=== PATIENT | female | born 1985 | race Caucasian/White ===

== ENCOUNTER 2018-09-28 12:25 | Inpatient (IN) | payer MEDICAID, SELFPAY ==
[2016-08-24 07:15] VITALS: BMI 39.9
[2018-09-28] MEDS: Lactated Ringers 1,000 ML 50 ML IV ×3 (12:45→20:30)
[2018-09-28 12:46] VITALS: BMI 41.1
[2018-09-28 13:03] LABS: Hematocrit 35.9 % (37-47); Hemoglobin 11.4 g/dl (12.0-15.0); Mean Corp Hgb Conc 31.8 g/gl (32-36); Mean Corpuscular Hgb 26.1 pg (27.0-32.0); Mean Corpuscular Volume 82.2 fL (81-99); Platelet Count 337 K/mm3 (150-450); RBC Distribution Width CV 15.8 % (11.6-14.6); RBC Distribution Width SD 46.7 fl (35.1-43.9); Red Blood Count 4.37 M/mm3 (4.2-5.4); White Blood Count 15.1 K/mm3 (4.4-11.0)
[2018-09-28 13:04] LABS: Scan Indicated on CBC? Y/N NO
[2018-09-28] MEDS: Oxytocin 30 units/NS 500 ml 30 UNITS/500 ML IV.SOLN IV (13:45)
[2018-09-28] MEDS: Mag Hydrox/Al Hydrox/Simeth 30 ML UDC PO (14:17)
--- NOTE | 2018-09-28 17:48 | PCM.HP.OB ---
History Date of Admission: 09/28/18 Final ADDI: 10/14/18 Final ADDI Source: US <20 weeks Gestational age: 37 Weeks and 5 Days History of this : This is a 33 year-old, G [], P [], at 37 weeks gestational age. Allergies No Known Allergies Allergy (Verified 08/24/16 08:44) Home Medications: Home Medications Ferrous Gluconate 325 mg PO DAILY@0800 07/28/16 Folic Acid 0.8 mg PO DAILY 07/28/16 Vit No.130/Iron/Folic [ Vitamins] 1 each PO DAILY 07/28/16 Estrogens, Conjugated [Premarin] 1 dose VAGINAL DAILY #1 tube 08/25/16 Ibuprofen [Motrin] 800 mg PO TID PRN #30 tablet 08/25/16 Oxycodone HCl/Acetaminophen [Percocet 5/325] 1 - 2 tablet PO Q4H PRN PRN #20 tablet 08/25/16 Smoking Status: Former smoker Alcohol: None Number of Fetus(es): 1 Heart Tracing: Normal baseline, moderate variability, excels. Category 1 upon admission. Now with normal baseline, moderate variability and some accelerations. No repetitive decelerations TOCO Analysis: Tocometer shows contractions every 2 to 4-minute History Past Pregnancies: Past Pregnancies Delivery Date Name GA/Weeks Outcome Route Weight Gender Labor Length Anesthesia Delivery Location Provider FOB Expected Infant Delivery Method: Spontaneous Vaginal Review of Systems Constitutional: Denies: Anorexia, Chills, Fever Eyes: Denies: Blurred vision Cardiovascular: Denies: Chest Pain Respiratory: Denies: Cough Gastrointestinal: Denies: Abdominal Pain Skin: Denies: Rash Physical Exam General: Alert, Cooperative, No apparent distress Cardiovascular: Regular rate Lungs: Normal air movement Abdomen: Soft, Non Tender, Non-Distended, Gravid Extremities:: Other - edema 1+ 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 33-year-old 3 para 10/11/2001 at 37-5/7 weeks gestation in labor. Admitted for early labor. Will initiate group B strep prophylaxis. Pitocin augmentation if needed. Patient may have epidural if needed. Estimated weight is less than 4500 g clinically and pelvis is adequate to expect vaginal delivery.
--- NOTE | 2018-09-28 20:35 | NURSING ---
Dr. Moore was in surgery so Dr. Bella was called in to assess pts previous epidural that was placed. Dr. Bella came in from home.
--- NOTE | 2018-09-28 20:36 | PCM.PN.OB ---
Subjective: Patient sitting comfortably after having epidural replaced by Dr. Bella. Patient is now comfortable at this time; reports that ctx feel more manageable and that she is starting to feel some rectal pressure. Objective: FHT baseline 140, moderate variability, + accels, mild variable decels with lucille to 115-120 with spontaneous recovery to baseline Ctx q 2 minutes palpating moderate to strong SVE = 5/80/-2 at last exam on 1800. Plan for rpt SVE with placement of urinary catheter by nursing staff - Physical Exam General: Alert, Oriented x3, Cooperative HEENT: Atraumatic, Normocephalic Neck: Supple Lungs: Normal air movement Cardiovascular: Regular rate, No murmurs Abdomen: Soft, Non Tender Extremities: No edema, Capillary Refill Less than 3 Seconds Skin: No rashes, No breakdown Musculoskeletal: No Tenderness to Palpation of Joints or Extremities Neurological: Cranial nerves II-XII grossly intact Psych/Mental Status: Normal Affect, Appropriate Weight: 218 lb Body Mass Index (BMI) 41.1 Laboratory Tests Past 24 Hrs 09/28/18 09/28/18 12:45 12:45 WBC 15.1 H RBC 4.37 Hgb 11.4 L Hct 35.9 L MCV 82.2 MCH 26.1 L MCHC 31.8 L RDW 15.8 H RDW Differential 46.7 H Plt Count 337 MPV 10.0 Blood Type A POSITIVE Antibody Screen NEGATIVE Medical Necessity - Tobacco Use Smoking Status: Former smoker Assessment/Plan 33 y/o @ 37.5 wks, Labor Augmentation, Category I-II FHT, Active Labor P: 1) Continue IV Pitocin at this time per protocol 2) Encourage PO hydration and position changes 3) Anticipate Lizet BERRIOS
[2018-09-28] MEDS: Oxytocin 30 units/NS 500 ml 30 UNITS/500 ML IV.SOLN 334 UNITS IV (23:25)
[2018-09-28] MEDS: Oxytocin 30 units/NS 500 ml 30 UNITS/500 ML IV.SOLN 167 UNITS IV (23:55)
--- NOTE | 2018-09-29 00:08 | PCM.OB.VAG ---
Vaginal Delivery Maternal Presentation: - - Labor Augmentation Method of Induction: Pitocin, Amniotomy Medical Reason for Induction: - - Prodromal Labor Amniotic Membrane Rupture Type: Artificial Amniotic Fluid Description: Clear Final ADDI: 10/14/18 Gestational age: 37 Weeks and 6 Days Date of Procedure: 09/28/18 Pre-Operative Diagnosis: Labor Augmentation Post-Operative Diagnosis: of Viable Boy Baby Surgery/ Procedure Performed: Spontaneous Vaginal Delivery Anesthesiologist: Dru Ang - Also Dr. Bella Type of Anesthesia: Epidural Description of Procedure: Patient progressed well to 6-7/95/-1 to 895/-1 and then she felt urge to bear down while in hands and knees position and was found to be C/C/0 to +1 station. Patient pushed well with urge and delivered viable baby boy in side lying position at 2318 over 1st degree lacerated perineum. head delivered OA, restituted to DANII and then to LOT. Anterior shoulder delivered without difficulty followed by posterior shoulder and body. delivered and had spontaneous cry and respirations. was placed on maternal chest where the baby was dried and stimulated, mouth and nose bulb suctioned. Apgars 8 and 9. Umbilical cord clamped and cut once it stopped pulsing. Placenta then delivered spontaneously via Echevarria mechanism intact with 3VC. FF, midline @ umbilicus to massage, IV pitocin per protocol infused for active management of the 3rd stage. Upon inspection of vaginal vault, 1st degree Rt. Mediolateral perineal laceration noted. Repaired under epidural and 1% lidocaine analgesia in the usual fashion. EBL = 150cc. Sponge and needle count correct. Vaginal sweep negative. Baby to breast, and [id number] initiated. Presentation: Vertex, DANII Placental Delivery Description: Spontaneous Placenta Disposition: [facility] Cord Vessel Description: 3 Vessels Cord Entanglement: None Estimated Blood Loss: 150 A gender: Male (1 minute): 8 (5 minute): 9 Episiotomy Description: None Laceration: Right Mediolateral, Perineal Extension/lac, 1st degree Medications given after delivery: IV Pitocin Complications: None
[2018-09-29] MEDS: Ibuprofen 600 MG Tablet PO ×3 (00:36→12:48)
[2018-09-29 04:10] VITALS: BP 129/69; PULSE 95; RESP 18; TEMP 36.1
[2018-09-29] MEDS: Dibucaine 30 GM Tube 1 APPLIC TOPICAL (06:42)
--- NOTE | 2018-09-29 07:37 | DCINST_ITS ---
Discharge Diet: No Restrictions Discharge Activity: Return to Normal Activity, May not drive while taking narcotic pain medications., May Shower May resume sexual activity in: 4-6 weeks Additional Activity Instructions:: Nothing in the vagina for 4-6 weeks. You may return to work/school in 6 weeks. Call your doctor if your incision/area has: Continuous Slow Oozing, Sudden Increased Bleeding, Increased Pain/ Swelling, Increased Redness, Foul Smelling Discharge Call your doctor if you observe: Fever of 101 or Higher, Inability to urinate, Inability to have a bowel movement, Using more than one pad per hour Additional Instructions: If you experience any of the following, contact your healthcare provider. * Bleeding that soaks a pad every hour for 2 hours * Fever 100.4 or higher * Unrelieved incision or abdominal pain * Swelling, redness, discharge or bleeding from your incision or episiotomy site * Your incision begins to separate * Problems urinating (including inability to urinate or burning while urinating). * Visual changes * Severe headache * Flu-like symptoms * Pain or redness in one of both of your breasts * Pain, warmth, tenderness or swelling in your legs, especially the calf area * Frequent nausea and vomiting * Symptoms of depression or anxiety If you experience any of the following, call 911 or go to the nearest Emergency Room. * Chest pain * Problems breathing * Seizure activity * Partial or complete paralysis of a body part, slurred speech, weakness or drooping of the face, or a sudden inability to walk or hold your balance Allergies/Adverse Reactions: Allergies No Known Allergies Allergy (Verified 08/24/16 08:44) Medications to take at Discharge Ferrous Gluconate 325 mg PO DAILY@0800 07/28/16 Folic Acid 0.8 mg PO DAILY 07/28/16 Vit No.130/Iron/Folic [ Tablet] 1 each PO DAILY 07/28/16 Ibuprofen [Motrin] 800 mg PO TID PRN #30 tablet 08/25/16 Please Follow Up With: Lizet Fong CNM When: Call to make an appointment with your provider at 2 weeks and 6 weeks. If you had elevated Blood Pressure or 4th degree laceration you will need to be seen in 1 week. Primary Care Physician: Anel Cueto NP-C [Primary Care Provider] - Test Results: Test results from this visit will be discussed in further detail at your follow- up appointment, if applicable. Proposed Discharge Date: 09/30/18
--- NOTE | 2018-09-29 07:38 | PCM.PN.OB ---
Subjective: Patient sitting up in bed bonding with the baby at this time. Patient reports generalized muscle soreness though denies any issues with urination or ambulation. Patient reports no MCDANIEL, scotoma or dizziness. Patient is and notes that the baby is latching well without difficulty. Objective: Nipples without cracks or blisters, no erythema noted Abdomen NT x 4 quadrants, FF midline @ 1FB below umbilicus +2/4 reflexes in LE, no edema noted Perineum well approximated, small rubra lochia negative calf tenderness to palpation bilaterally - Physical Exam General: Alert, Oriented x3, Cooperative HEENT: Atraumatic, Normocephalic Neck: Supple Lungs: Normal air movement Cardiovascular: Regular rate, No murmurs Abdomen: Soft, Non Tender Extremities: No edema, Capillary Refill Less than 3 Seconds Skin: No rashes, No breakdown Musculoskeletal: No Tenderness to Palpation of Joints or Extremities Neurological: Cranial nerves II-XII grossly intact Psych/Mental Status: Normal Affect, Appropriate Vital Signs Temp Pulse Resp BP 97.0 F L 95 18 129/69 H 09/29/18 04:10 09/29/18 04:10 09/29/18 04:10 09/29/18 04:10 Oxygen Delivery Method Room Air Weight: 218 lb Body Mass Index (BMI) 41.1 Intake and Output for Last 24 Hours 09/27/18 09/28/18 09/29/18 23:59 23:59 23:59 Intake Total 3842 / 3842 Output Total 1999 Balance 1842 / 1842 Laboratory Tests Past 24 Hrs 09/28/18 09/28/18 12:45 12:45 WBC 15.1 H RBC 4.37 Hgb 11.4 L Hct 35.9 L MCV 82.2 MCH 26.1 L MCHC 31.8 L RDW 15.8 H RDW Differential 46.7 H Plt Count 337 MPV 10.0 Blood Type A POSITIVE Antibody Screen NEGATIVE Medical Necessity - Tobacco Use Smoking Status: Former smoker Assessment/Plan 33 y/o now, s/p of viable boy baby, PPD # 1, Normal PP Course P: 1) Continue present PP management 2) Anticipate discharge to home tomorrow Lizet BERRIOS
[2018-09-29] MEDS: Acetaminophen 500 MG Tablet 1000 MG PO ×2 (08:03→16:48)
[2018-09-29] MEDS: Senna/Docusate Sodium 1 Tablet PO (08:04)
[2018-09-29 08:09] VITALS: BP 114/60; PULSE 93; RESP 16; TEMP 37.2
[2018-09-29] MEDS: Sertraline 50 MG Tablet PO (10:23)
[2018-09-29 12:29] VITALS: BP 118/57; PULSE 99; RESP 16; TEMP 37
[2018-09-29] MEDS: oxyCODONE 5 MG Tablet PO (15:06)
[2018-09-29 15:50] VITALS: BP 118/56; PULSE 95; RESP 16; TEMP 36.8
[2018-09-29 20:03] VITALS: BP 126/62; PULSE 97; RESP 16; TEMP 37; O2SAT 97
[2018-09-29] MEDS: Naproxen 250 MG Tablet 500 MG PO (20:11)
[2018-09-30 01:09] VITALS: BP 110/59; PULSE 80; RESP 16; TEMP 36.4; O2SAT 95
[2018-09-30] MEDS: Acetaminophen 500 MG Tablet 1000 MG PO ×2 (01:16→12:05)
[2018-09-30] MEDS: Naproxen 250 MG Tablet 500 MG PO ×2 (06:02→14:01)
--- NOTE | 2018-09-30 09:05 | PCM.PN.OB ---
Subjective: Doing well per patient and nursing staff. Ambulating and taking PO without difficulty. Voiding and passing flatus. without concern. Slight headache since epidural, not positional and denies further management, improving. Denies vis chg's, chest pain, SOB, leg pain, increased vaginal bleeding or clots. Planning D/C home today. - Physical Exam General: Alert, Oriented x3, Cooperative HEENT: Atraumatic, Normocephalic Lungs: Clear to auscultation, Normal air movement, No rhonchi, No wheeze Cardiovascular: Regular rate, Regular Rhythm, No murmurs Abdomen: Bowel Sounds Present, - - Fundus firm 2 below U Extremities: No edema, - - Danitza's negative Neurological: Cranial nerves II-XII grossly intact, Deep Tendon Reflexes 2+/4 and Symmetrical Psych/Mental Status: Normal Affect, Appropriate Comment: small amount of lochia rubra Vital Signs Temp Pulse Resp BP Pulse Ox 97.6 F L 80 16 110/59 L 95 09/30/18 01:09 09/30/18 01:09 09/30/18 01:09 09/30/18 01:09 09/30/18 01:09 Oxygen Delivery Method Room Air Weight: 218 lb Body Mass Index (BMI) 41.1 Intake and Output for Last 24 Hours 09/28/18 09/29/18 09/30/18 23:59 23:59 23:59 Intake Total 3842 / 3842 Output Total 2200 / 2200 Balance 1642 / 1642 Medical Necessity - Tobacco Use Smoking Status: Former smoker Assessment/Plan A: PPD #2 for P: 1)Routine and discharge instructions 2) May make 2 weeks follow up visit. Follow up in 6 weeks for care. 3) Motrin for pain. 4) D/C home today
[2018-09-30 09:11] VITALS: BP 115/62; PULSE 97; RESP 16; TEMP 36.6
[2018-09-30] MEDS: Senna/Docusate Sodium 1 Tablet PO (10:56)
[2018-09-30] MEDS: Sertraline 50 MG Tablet PO (10:57)
--- NOTE | 2018-09-30 14:30 | CASEMGMT ---
Social Work Labor and Delivery Unit Referral source: Hyperbaric Welder Diver for [facility] nursery and then driver education road instructor for the [facility] both put on referrals for social work. Reason for referrals: maternal history of anxiety, depression; baby admitted to [facility]. ? History obtained from:?mother of baby (MOB) Toshia Florentino, father of baby (FOB) Rios Florentino, and medical record?Educated MOB that as this poem writer is the secondary social studies teacher for the labor and delivery secondary social studies teacher at hospital of delivery, for continuity of care of families while on the SCN this poem writer also provides social work to both units. ? Household composition:?MOB, FOB, and 3 older children. Intent for baby Vahe to return to this home. ?Home situation is reported to be safe and adequate. ? ? Patient's parent/guardian status:?MOB is 32 and FOB is 42, for 10 years. ?Was able to speak to MOB privately, and MOB denies any form of abuse in relationship to FOB. ?Minor Children: Chiquis Florentino (born 07-31-2013), Mendiola and Ayush Florentino (born 08-24-2016). ? Medical History:?MOB is G3, P3 to 4 after delivering Vahe. ?Had one prior twin delivery. ??MOB started care at 7 weeks gestation, care good this . ?Prior pregnancies result of IVF, and this a surprise (not a result of IVF). ??Baby Vahe born weighing 7 pounds 5 ounces, Apgars 8 and 9 at 1 and 5 minutes of life. ? ? Developmental Concerns:?No identified concerns.? ? Educational Status:??MOB attended college. ?No problems reading, writing, or with any learning comprehension issues. ? Health Care Coverage:?[place].? ? 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 ??FOB works as a laborer shipyard/monitoring specialist. ? Supplies:??MOB reports to have needed baby supplies including car seat, crib, clothing, diapers, wipes, and breast pump.?? ? Childcare/Caregiver(s):?MOB will be primary caregiver when home. ?The family does have a shirt closer already arranged. ? ? Transportation:?No reported issues for either parent. ? Programs/Agencies Involved:?[place] through [place]. ?Active with WIC. ??Denies any other agency involvement. ?No reports of any children services history. ? Behavioral Health Issues:? Mental Health: ?MOB reports history of anxiety and depression after of twins. ?MOB diagnosed at about 12 months out from delivery the twins, started on Zoloft and han been on this since, even through this . ?MOB denies any history of suicidal thoughts, plans, intent, or attempts. Denies any thoughts of harm to others. ?MOB reports did go to counseling at [facility] in [place] and this as helpful during the depression. Substance Use History: ?MOB denies any history of substance use or abuse. ?? Drug Screens:??Negative on 02-25-18. ? Family Stressors:??[place] as this was the first conceived without IVF. ?Parents accepting of however. ?Family with past NICU stay at [facility] in [place], so baby going to this [facility] has been a bit of stress in that family, especially the FOB worried that Baby Vhae would have to go to [facility] as well. ? ? Support Systems:?MOB reports FOB is supportive, very helpful to MOB, and is supportive to MOB regarding some past trauma MOB has experienced in the past. ??MOB reports supportive family and jehovah's witness family in the area. ? Assessment MOB talkative, pleasant, friendly, and receptive to social work visit. ?MOB spontaneous in conversation, sharing information at times not asked but also relevant to discussion at hand. ??MOB bright affect, accepting of baby's need to be in the [facility] and happy MOB and baby can at least be in the same building, not have to travel out of town right now. ??While FOB present, FOB quiet, would talker wit social work elicitation. ?Prior to FOB leaving room at this poem writer's request, FOB did speak up and express worry that this poem writer had initially come in to say baby was going to [facility]. ?FOB talked about feelings and associations relating to past NICU experience. ?Emotional support offered to both parents. ??Answered questions as able. ??MOB reports to have sufficient support, to have baby supplies, to feel a connectin to baby, and to also have awareness of depression. ??MOB plans to stay on antidepressant and report agreement in calling for counseling should symptoms of depression surface again. ??MOB denies any needs for home going but accepting of resources list and depression packet this poem writer offered today. ?? ? Plan MOB and baby to home when ready. ??[facility] resources provided. ? depression packet also provided, including online and local supports. ? ?Response to Plan: MOB?does express understanding of proposed plan.?No other service requested or indicated, but does remain available for support as indicated during hospital stay.
[2018-09-30 15:00] VITALS: BP 119/77; PULSE 84; RESP 16; TEMP 36.6
--- OUTSIDE RECORDS SUMMARY | 2018-12-30 17:48 | XMS RPT_ITS ---
:1985 Author Organization [place] Care Team Providers Name Role Phone Shruthi Finn Admitting Unavailable Shruthi Finn Attending Unavailable Shruthi Finn Referring Unavailable Woodrow Cueto PODIATRY PROFESSOR-C Primary Care Unavailable WOODROW CUETO (STUDENT SUPPORT SERVICES DIRECTOR) Attending Unavailable WOODROW CUETO (STUDENT SUPPORT SERVICES DIRECTOR) Referring Unavailable SHRUTHI FINN Referring Unavailable CAROL JOHNS Attending Unavailable LIZET AHN (CNM) Attending Unavailable SHRUTHI FINN Attending Unavailable ESTEBAN BARROSO (CNM) Attending Unavailable LIZET AHN (CNM) Attending Unavailable ESTEBAN BARROSO (CNM) Referring Unavailable KISHA ROBERTS Attending Unavailable ESTEBAN BARROSO (CNM) Referring Unavailable ESTEBAN BARROSO (CNM) Attending Unavailable CAROL JOHNS Attending Unavailable LIZET AHN (CNM) Attending Unavailable RODRIGO NIEVES Attending Unavailable RICARDO ROGERS CAROL Referring Unavailable KISHA ROBERTS Attending Unavailable GABRIELA ELIZONDO Referring Unavailable CAROL JOHNS Attending Unavailable SHRUTHI FINN Attending Unavailable KISHA ROBERTS Attending Unavailable RICARDO ROGERS CAROL Referring Unavailable GABRIELA ELIZONDO Attending Unavailable RICARDO ROGERS CAROL Referring Unavailable SHRUTHI FINN Referring Unavailable LIZET AHN (CNM) Attending Unavailable RICARDO ROGERS, CAROL Referring Unavailable RICARDO TORRES Attending Unavailable NEKATY ROGERS, CAROL Referring Unavailable SHRUTHI FINN Attending Unavailable NECARMENT ROGERS, CAROL Referring Unavailable NECARMENT KEN, CAROL Referring Unavailable PROBLEMS PROBLEMS DATE TYPE CONDITION / CODE ATTENDING STATUS SOURCE 07/28/2018 Active 28 weeks gestation NA Active [facility] [place] Z3A.28(ICD-10) Repository 03/29/2018 Active 11 weeks gestation NA Active [facility] [place] Z3A.11(ICD-10) Repository 03/29/2018 Active Encounter for NA Active [facility] supervision of [facility] other normal Repository , first trimester / Z34.81(ICD-10) 03/29/2018 Active Encounter for NA Active [facility] [place] screening for Repository nuchal translucency / Z36.82(ICD-10) 03/29/2018 Active Encounter for Active [facility] screening, Repository unspecified / Z36.9(ICD-10) PROCEDURES PROCEDURES No Procedure Records FoundRESULTS RESULTS PROGRESS Observed: 10/27/2018 Status: COMPLETED Source: [place] 2:29 PM [facility] RE[facility] HNO ID: [id number] Author: Woodrow Gould ([facility]) Rom Service: (none) Author Type: Nurse Practitioner Type: Progress Notes Filed: 10/27/2018 3:28 PM Note Text: HPI/CC: Peyman Pickens is an 33 year old female who presents for followup of depression and anxiety treatment. Approximately 6 weeks PP. Taking zoloft daily without SE Since last visit patient symptoms have improved. Has bounced back from well Support system: family PHQ9 and NOVA-7: Little interest or pleasure in doing things 0 - Not at all Feeling down, depressed, or hopeless 0 - Not at all Trouble falling or staying asleep, or sleeping too much 0 - Not at all Feeling tired or having little energy 1 - Several days Poor appetite or overeating 0 - Not at all Feeling bad about yourself - or that you are a failure or have let yourself or your family down 0 - Not at all Trouble concentrating on things, such as reading the newspaper or watching television 0 - Not at all Moving or speaking so slowly that other people could have noticed. Or the opposite - being so fidgety or restless that you have been moving around a lot more than usual 0 - Not at all Thoughts that you would be better off , or of hurting yourself in some way 0 - Not at all If you checked off ANY problems, how DIFFICULT have these problems made it for you to do your work, take care of things at home, or get along with other people? Not difficult at all Interpretation of Total Score 1-4 Minimal depression score of 1 Feeling nervous, anxious, or on edge 0 Not at all sure Not being able to stop or control worrying 0 Not at all sure Worrying too much about different things 0 Not at all sure Trouble relaxing 0 Not at all sure Being so restless that it's hard to sit still 0 Not at all sure Being easily annoyed or irritable 1 Several days Feeling afraid as if something awful might happen 0 Not at all sure NOVA-7 Anxiety Score 1 ROS as above, otherwise non-contributory. Reviewed PMHx, PSHx, social Hx, medications and allergies. PHYSICAL EXAMINATION: BP 120/84 Pulse 76 Resp 16 Wt 89.8 kg (198 lb) BMI 37.41 kg/m? Appearance: well dressed well groomed, cooperative and pleasant Behavior: good eye contact and relaxed Speech: fluent and coherent Mood: happy Affect: appropriate Perceptions: none Thought process: goal directed Thought Content: normal Intelligence level: normal Insight: good Judgment: good Lungs: Lungs clear to auscultation. No wheezing, rhonchi, rales Heart: RRR without murmur, gallop, or rubs. No ectopy ASSESSMENT/PLAN: 1. Anxiety and depression - ICD9: 300.00, 311, ICD10: F41.9, F32.9 - SERTRALINE 50 MG TABLET - f/u 1 year Woodrow Cueto APRN.STUDENT SUPPORT SERVICES DIRECTOR CNOV Observed: 10/27/2018 Status: COMPLETED Source: [place] 2:20 PM [facility] REPOSITORY Office Visit (FAMPWS) PEYMAN PICKENS ([id number]) 1985 F Date Time Provider Department 10/27/18 2:20 PM WOODROW CUETO ([facility]) ALEXA During your visit today, we recorded the following information about you: Pulse Respiration Blood pressure Weight 76/minute 16/minute 120/84 89.8 kg Woodrow Cueto APRN.CNP 10/27/2018 3:28 PM Signed HPI/CC: Peyman Pickens is an 33 year old female who presents for followup of depression and anxiety treatment. Approximately 6 weeks PP. Taking zoloft daily without SE Since last visit patient symptoms have improved. Has bounced back from well Support system: family PHQ9 and NOVA-7: Little interest or pleasure in doing things 0 - Not at all Feeling down, depressed, or hopeless 0 - Not at all Trouble falling or staying asleep, or sleeping too much 0 - Not at all Feeling tired or having little energy 1 - Several days Poor appetite or overeating 0 - Not at all Feeling bad about yourself - or that you are a failure or have let yourself or your family down 0 - Not at all Trouble concentrating on things, such as reading the newspaper or watching television 0 - Not at all Moving or speaking so slowly that other people could have noticed. Or the opposite - being so fidgety or restless that you have been moving around a lot more than usual 0 - Not at all Thoughts that you would be better off , or of hurting yourself in some way 0 - Not at all If you checked off ANY problems, how DIFFICULT have these problems made it for you to do your work, take care of things at home, or get along with other people? Not difficult at all Interpretation of Total Score 1-4 Minimal depression score of 1 Feeling nervous, anxious, or on edge 0 Not at all sure Not being able to stop or control worrying 0 Not at all sure Worrying too much about different things 0 Not at all sure Trouble relaxing 0 Not at all sure Being so restless that it's hard to sit still 0 Not at all sure Being easily annoyed or irritable 1 Several days Feeling afraid as if something awful might happen 0 Not at all sure NOVA-7 Anxiety Score 1 ROS as above, otherwise non-contributory. Reviewed PMHx, PSHx, social Hx, medications and allergies. PHYSICAL EXAMINATION: BP 120/84 Pulse 76 Resp 16 Wt 89.8 kg (198 lb) BMI 37.41 kg/m? Appearance: well dressed well groomed, cooperative and pleasant Behavior: good eye contact and relaxed Speech: fluent and coherent Mood: happy Affect: appropriate Perceptions: none Thought process: goal directed Thought Content: normal Intelligence level: normal Insight: good Judgment: good Lungs: Lungs clear to auscultation. No wheezing, rhonchi, rales Heart: RRR without murmur, gallop, or rubs. No ectopy ASSESSMENT/PLAN: 1. Anxiety and depression - ICD9: 300.00, 311, ICD10: F41.9, F32.9 - SERTRALINE 50 MG TABLET - f/u 1 year Woodrow Cueto APRN.[facility] Referring Provider: WOODROW CUETO ([facility]) [[id number]] Allergies As of Date: 10/27/2018 (No Known Allergies) Date Reviewed: 10/27/2018 Reviewed by: Scout Davis LPN - Fully Assessed Reason for Visit: Recheck [92] Cmt: medication refill- sertraline Visit Diagnosis:Anxiety and depression [F41.9, F32.9] Order(s):sertraline (ZOLOFT) 50 mg tabletTake 1 tablet by mouth once daily.Disp: 90 tabletRfl: 3 Prescriptions as of 10/27/2018 Sig: FLUCONAZOLE 150 MG TABLET Repeat in 3 days SERTRALINE 50 MG TABLET Take 1 tablet by mouth once d* VITAMIN,CALCIUM,MINE* Take 1 tablet by mouth. FERROUS SULFATE, DRIED ER 160* Take by mouth. Taking iron ev* BREAST PUMP As directed Problem List As Of Date 10/27/2018 Noted Resolved with care elsewhere [Z34.90] INVALID FOR*09/14/2013 More... Spotting in first trimester [O26.851] INVALID FOR*05/23/2013 More... Family history of defects [Z82.79] INVALID FOR*09/14/2013 More... Supervision of normal first [Z34.00] INVALID FOR*09/14/2013 More... Monochorionic diamniotic twin gestation in thir*INVALID FOR*02/25/2018 More... Family history of defects [Z82.79] INVALID FOR* More... Placenta previa in second trimester [O44.02] INVALID FOR*07/16/2016 32 weeks gestation of [Z3A.32] INVALID FOR*07/24/2016 Positive GBS test [B95.1] INVALID FOR* Obesity in [O99.210] INVALID FOR* More... History of depression [Z86.59] INVALID FOR* More... Patient requested diagnostic testing [Z01.89] INVALID FOR*03/29/2018 More... Family history of carrier of genetic disease [Z*INVALID FOR* More... History of infertility [Z87.42] INVALID FOR* More... More... Partial placenta previa nos or without hemorrha*INVALID FOR*07/28/2018 More... Uterine size-date discrepancy, third trimester *INVALID FOR* More... Prescriptions ordered this encounter Disp Refills Start End SERTRALINE 50 MG TABLET 90 t* 3 10/27/2018 10/27/2018 Route: ORAL Sig: Take 1 tablet by mouth once daily. SERTRALINE 50 MG TABLET 90 t* 3 10/27/2018 Route: ORAL Sig: Take 1 tablet by mouth once daily. Medications Discontinued During This Encounter sertraline (ZOLOFT) 50 mg tablet 30 t* 0 10/26/2018 10/27/2018 Route: ORAL Sig: Take 1 tablet by mouth once daily. Disc: Reason for discontinue is not on file. sertraline (ZOLOFT) 50 mg tablet 90 t* 3 10/27/2018 10/27/2018 Route: ORAL Sig: Take 1 tablet by mouth once daily. Disc: Reason for discontinue is not on file. Questionnaire: NOVA-7 ANXIETY SCALE Feeling nervous, anxious, or on edge -> 0 Not at all sure Not being able to stop or control worrying -> 0 Not at all sure Worrying too much about different things -> 0 Not at all sure Trouble relaxing -> 0 Not at all sure Being so restless that it's hard to sit still -> 0 Not at all sure Being easily annoyed or irritable -> 1 Several days Feeling afraid as if something awful might happen -> 0 Not at all sure NOVA-7 Anxiety Score -> 1 Encounter Status:Closed by WOODROW CUETO CNP on 10/27/18 OBSOLETE Observed: 10/22/2018 Status: COMPLETED Source: [place] 12:00 AM [facility] REPOSITORY Refill (FAMPWS) PEYMAN PICKENS ([id number]) 1985 F Date Time Provider Department 10/22/18 WOODROW CUETO ([facility]) FAMPWS During your visit today, we recorded the following information about you: Rios Reza Psr 10/22/2018 10:02 AM Signed Patient has been identified by name and date of : Yes Last office visit in this department: 09/07/2017 RX INSTRUCTIONS: Patient aware RX will be sent to pharmacy. No need to notify patient. Patient phones requesting refills as follows: Pending Prescriptions Disp Refills SERTRALINE 50 MG TABLET 90 tablet 3 Sig: Take 1 tablet by mouth once daily. YAMILEX: No Please review and advise. Rios Reza Psr Allergies As of Date: 10/22/2018 (No Known Allergies) Date Reviewed: 10/08/2018 Reviewed by: Lizet [facility] HospitalJenny Ahn - Fully Assessed Reason for Visit: Refill Request [94] Visit Diagnosis:Anxiety and depression [F41.9, F32.9] Prescriptions as of 10/22/2018 Sig: FERROUS SULFATE, DRIED ER 160* Take by mouth. Taking iron ev* BREAST PUMP As directed VITAMIN,CALCIUM,MINE* Take 1 tablet by mouth. SERTRALINE 50 MG TABLET Take 1 tablet by mouth once d* Problem List As Of Date 10/22/2018 Noted Resolved with care elsewhere [Z34.90] INVALID FOR*09/14/2013 More... Spotting in first trimester [O26.851] INVALID FOR*05/23/2013 More... Family history of defects [Z82.79] INVALID FOR*09/14/2013 More... Supervision of normal first [Z34.00] INVALID FOR*09/14/2013 More... Monochorionic diamniotic twin gestation in thir*INVALID FOR*02/25/2018 More... Family history of defects [Z82.79] INVALID FOR* More... Placenta previa in second trimester [O44.02] INVALID FOR*07/16/2016 32 weeks gestation of [Z3A.32] INVALID FOR*07/24/2016 Positive GBS test [B95.1] INVALID FOR* Obesity in [O99.210] INVALID FOR* More... History of depression [Z86.59] INVALID FOR* More... Patient requested diagnostic testing [Z01.89] INVALID FOR*03/29/2018 More... Family history of carrier of genetic disease [Z*INVALID FOR* More... History of infertility [Z87.42] INVALID FOR* More... More... Partial placenta previa nos or without hemorrha*INVALID FOR*07/28/2018 More... Uterine size-date discrepancy, third trimester *INVALID FOR* More... Encounter Status:Closed by DUNIA BRODY on 10/24/18 PROGRESS Observed: 10/07/2018 Status: COMPLETED Source: [place] 10:[address] [facility] [place] REPOSITORY O ID: [id number] Author: Lizet Ahn Service: (none) Author Type: Railroad Track Inspector Type: Progress Notes Filed: 10/08/2018 3:55 PM Note Text: Peyman Pickens is a 33 year old female who presents for problem visit reporting heightened anxiety/depression symptoms since delivery of child 9 days ago. HPI: Patient reports a personal history of anxiety/depression and mood disorder after the delivery of her twins in 2015. Patient reports that recently went back to work a few days ago and now she has had periods of irritability and frustration. Patient has been at home taking care of other 3 children and now also infant and she feels more on edge. Patient denies HI/SI. She denies inability to complete ADLs. Patient is currently on Zoloft 50mg PO daily at this time. Patient denies insomnia, denies racing thoughts, denies mood swings. Patient reports she has strong support system from extended family and her hinduism. Patient is eating regular meals. She notes that this is baby is easy and that she is having no issues with or latch. She is bonding well with baby. Patient presents today to be proactive and to make contact with a provider now before her symptoms get any worse. PAST MEDICAL HISTORY Diagnosis Date - Anemia - Depression - Infertility, female - PMH - PAST MEDICAL HISTORY OF cyclic vomiting syndrome/dx age 5 and saw specialist in [place]. - depression PAST SURGICAL HISTORY [place] [facility] [place] H[place] Problem Relation Age of Onset - Hypertension Father - other (Colon polys) Father - other (Gout) Father - other (Pulmonary Embolism) Father - Psychiatry Sister anxiety/depression - Hypertension Maternal Grandmother - Osteoporosis Maternal Grandmother - other (parkinson's disease) Maternal Grandmother - Emphysema Maternal Grandfather - Diabetes Paternal Grandfather - other (Lymphoma) Paternal Grandfather - Asthma Brother childhood Social History Marital status: Spouse name: Yash Years of education: 16 Number of children: 3 Occupational History 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 Taking iron every other day. Cnalanbk-Sf-Kew-Fe-FA ( VITAMIN) tab Take 1 tablet by mouth. sertraline (ZOLOFT) 50 mg tablet Take 1 tablet by mouth once daily. Breast Pump Device As directed No current facility-administered medications for this visit. Allergies As of Date: 10/07/2018 (No Known Allergies) Fully Assessed 10/07/2018 REVIEW OF SYSTEMS Abdomen: No bloating, early satiety, indigestion, or increased flatulence. No abdominal pain, nausea, vomiting, diarrhea, or constipation. Bladder: No dysuria, gross hematuria, urinary frequency, urinary urgency, or incontinence. Breast: No breast lumps, nipple d/c, overlying skin changes, redness or skin retraction. Expanded ROS: PSYCH: Negative for sleep disturbance, mood disorder and recent psychosocial stressors, See HPI Allergies and current medication updated:Yes EXAM: BP 118/72 Wt 203 lb (92.1kg) GENERAL: pleasant, female in no apparent distress HEENT: Normocephalic, atraumatic, mucus membranes moist and no lesions NECK: Supple, full range of motion, no adenopathy and thyroid normal DERMATOLOGY: Normal, without lesions, non-icteric and non-hirsute BREAST: deferred CHEST: Normal inspiratory effort ABDOMEN: Deferred PELVIC: deferred BIMANUAL: deferred NEURO: alert and oriented x3,exam grossly non-focal EXTREMITIES: normal ASSESSMENT AND PLAN: Encounter Diagnosis ICD-10-CM 1. mood disturbance O90.6 1) Continue Zoloft 50mg PO daily at this time 2) Encourage asking for assistance from family and spouse in childcare attendant and other calibration technician - patient will consider. She reports desire to have things done the correct way the first time 3) Discussed that irritability/feelings of frustration are consistent with expected mood in the first 2 weeks after delivery. Description of blues reviewed. Reassurance provided. 4) Patient to f/u in one week with this provider to reassess mood or PRN Lizet Ahn APRN.[facility] PROGRESS Observed: 09/29/2018 Status: COMPLETED Source: [place] 11:51 AM [facility] REPOSITORY O ID: [id number] Author: Darlyn Morrow LPN Service: (none) Author Type: (none) Type: Progress Notes Filed: 09/29/2018 11:53 AM Note Text: Pt delivered via at [facility] on 09/28/18 per Lizet Ahn CNM. See OB Outcome note. Darlyn Morrow LPN DISCHARGE INSTRUCTION Observed: 09/29/2018 Status: F Source: [place] 7:37 AM [facility] [place] [facility] [facility] Medical Records Department [address] [place], [place] [address] [address] Instructions for Home/Discharge Instructions 09/29/18 0736 MR#: [id number] Acct: [id number] Name: PEYMAN PICKENS Rep #: [id number] : 1985 33 From: Lizet Ahn CNM PCP: Woodrow Cueto NP Status: ADM IN Discharge Diet: No Restrictions Discharge Activity: Return to Normal Activity, May not drive while taking narcotic pain medications., May Shower May resume sexual activity in: 4-6 weeks Additional Activity Instructions:: Nothing in the vagina for 4-6 weeks. You may return to work/school in 6 weeks. Call your doctor if your incision/area has: Continuous Slow Oozing, Sudden Increased Bleeding, Increased Pain/ Swelling, Increased Redness, Foul Smelling Discharge Call your doctor if you observe: Fever of 101 or Higher, Inability to urinate, Inability to have a bowel movement, Using more than one pad per hour Additional Instructions: If you experience any of the following, contact your healthcare provider. * Bleeding that soaks a pad every hour for 2 hours * Fever 100.4 or higher * Unrelieved incision or abdominal pain * Swelling, redness, discharge or bleeding from your incision or episiotomy site * Your incision begins to separate * Problems urinating (including inability to urinate or burning while urinating). * Visual changes * Severe headache * Flu-like symptoms * Pain or redness in one of both of your breasts * Pain, warmth, tenderness or swelling in your legs, especially the calf area * Frequent nausea and vomiting * Symptoms of depression or anxiety If you experience any of the following, call 911 or go to the nearest Emergency Room. * Chest pain * Problems breathing * Seizure activity * Partial or complete paralysis of a body part, slurred speech, weakness or drooping of the face, or a sudden inability to walk or hold your balance Allergies/Adverse Reactions: Allergies No Known Allergies Allergy (Verified 08/24/16 08:44) Medications to take at Discharge Ferrous Gluconate 325 mg PO DAILY@0800 07/28/16 Folic Acid 0.8 mg PO DAILY 07/28/16 Vit No.130/Iron/Folic [ Tablet] 1 each PO DAILY 07/28/16 Ibuprofen [Motrin] 800 mg PO TID PRN #30 tablet 08/25/16 Please Follow Up With: Lizet Ahn CNM When: Call to make an appointment with your provider at 2 weeks and 6 weeks. If you had elevated Blood Pressure or 4th degree laceration you will need to be seen in 1 week. Primary Care Physician: Woodrow Cueto NP-Epi [Primary Care Provider] - Test Results: Test results from this visit will be discussed in further detail at your follow-up appointment, if applicable. Proposed Discharge Date: 09/30/18 09/29/18 0737 <Electronically signed by Lizet Ahn CNM> Date Lizet Ahn CNM CC: ALOK Cueto OPERATIVE REPORT Observed: 09/29/2018 Status: F Source: [place] 12:20 [facility] Medical Records Department [address] [place] [id number] Operative Report 09/29/18 0008 MR#: [id number] Acct: [id number] Name: PEYMAN PICKENS Rep #: [id number] : 1985 33 From: Lizet Ahn CNM PCP: Woodrow Cueto NP Status: ADM IN Location: [place] [id number] Vaginal Delivery Maternal Presentation: - - Labor Augmentation Method of Induction: Pitocin, Amniotomy Medical Reason for Induction: - - Prodromal Labor Amniotic Membrane Rupture Type: Artificial Amniotic Fluid Description: Clear Final ADDI: 10/14/18 Gestational age: 37 Weeks and 6 Days Date of Procedure: 09/28/18 Pre-Operative Diagnosis: Labor Augmentation Post-Operative Diagnosis: of Viable Boy Baby Surgery/ Procedure Performed: Spontaneous Vaginal Delivery Anesthesiologist: Dru Ang - Also Dr. Bella Type of Anesthesia: Epidural Description of Procedure: Patient progressed well to 6-7/95/-1 to 8/95/-1 and then she felt urge to bear down while in hands and knees position and was found to be C/C/0 to +1 station. Patient pushed well with urge and delivered viable baby boy in side lying position at 2318 over 1st degree lacerated perineum. head delivered OA, restituted to DANII and then to LOT. Anterior shoulder delivered without difficulty followed by posterior shoulder and body. Infant delivered and had spontaneous cry and respirations. was placed on maternal chest where the baby was dried and stimulated, mouth and nose bulb suctioned. Apgars 8 and 9. Umbilical cord clamped and cut once it stopped pulsing. Placenta then delivered spontaneously via Echevarria mechanism intact with 3VC. FF, midline @ umbilicus to massage, IV pitocin per protocol infused for active management of the 3rd stage. Upon inspection of vaginal vault, 1st degree Rt. Mediolateral perineal laceration noted. Repaired under epidural and 1% lidocaine analgesia in the usual fashion. EBL = 150cc. Sponge and needle count correct. Vaginal sweep negative. Baby to breast, and wcie-ax-myow initiated. Presentation: Vertex, DANII Placental Delivery Description: Spontaneous Placenta Disposition: [facility] Cord Vessel Description: 3 Vessels Cord Entanglement: None Estimated Blood Loss: 150 Infant A gender: Male (1 minute): 8 (5 minute): 9 Episiotomy Description: None Laceration: Right Mediolateral, Perineal Extension/lac, 1st degree Medications given after delivery: IV Pitocin Complications: None 09/29/18 0020 <Electronically signed by Lizet Ahn CNM> Date Lizet Ahn CNM CC: ALEXA Ahn; ALOK Cueto; Shruthi Finn MD Signed HOSP Observed: 09/29/2018 Status: COMPLETED Source: [place] 12:00 AM [facility] REPOSITORY Patient Update (WOOB) PEYMAN PICKENS ([id number]) 1985 F Date Time Provider Department 09/29/18 LIZET AHN ([facility]EX[place]) WOOB During your visit today, we recorded the following information about you: Darlyn Morrow ESTRELLA 09/29/2018 11:53 AM Signed Pt delivered via at [facility] on 09/28/18 per Lizet Ahn CNM. See OB Outcome note. Darlyn Morrow ESTRELLA Allergies As of Date: 09/29/2018 (No Known Allergies) Date Reviewed: 09/28/2018 Reviewed by: Shruthi Finn - Fully Assessed Prescriptions as of 09/29/2018 Sig: BREAST PUMP As directed FERROUS SULFATE, DRIED ER 160* Take by mouth. Taking iron ev* VITAMIN,CALCIUM,MINE* Take 1 tablet by mouth. SERTRALINE 50 MG TABLET Take 1 tablet by mouth once d* Problem List As Of Date 09/29/2018 Noted Resolved with care elsewhere [Z34.90] INVALID FOR*09/14/2013 More... Spotting in first trimester [O26.851] INVALID FOR*05/23/2013 More... Family history of defects [Z82.79] INVALID FOR*09/14/2013 More... Supervision of normal first [Z34.00] INVALID FOR*09/14/2013 More... Monochorionic diamniotic twin gestation in thir*INVALID FOR*02/25/2018 More... Family history of defects [Z82.79] INVALID FOR* More... Placenta previa in second trimester [O44.02] INVALID FOR*07/16/2016 32 weeks gestation of [Z3A.32] INVALID FOR*07/24/2016 Positive GBS test [B95.1] INVALID FOR* Obesity in [O99.210] INVALID FOR* More... History of depression [Z86.59] INVALID FOR* More... Patient requested diagnostic testing [Z01.89] INVALID FOR*03/29/2018 More... Family history of carrier of genetic disease [Z*INVALID FOR* More... History of infertility [Z87.42] INVALID FOR* More... More... Partial placenta previa nos or without hemorrha*INVALID FOR*07/28/2018 More... Uterine size-date discrepancy, third trimester *INVALID FOR* More... Encounter Status:Closed by DARLYN MORRWO LPN on 09/29/18 HISTORY AND PHYSICAL Observed: 09/28/2018 Status: F Source: [place] EXAM 5:51 PM [facility] [place] [facility] Medical Records Department [address] [place] [address] History and Physical 09/28/18 1748 MR#: [id number] Acct: [id number] Name: PEYMAN PICKENS Rep #: [id number] : 1985 33 From: Shruthi Finn MD PCP: Woodrow Cueto NP Status: ADM IN Y Location: [id number] History Date of Admission: 09/28/18 Final ADDI: 10/14/18 Final ADDI Source: US <20 weeks Gestational age: 37 Weeks and 5 Days History of this : This is a 33 year-old, G [], P [], at 37 weeks gestational age. Allergies No Known Allergies Allergy (Verified 08/24/16 08:44) Home Medications: Home Medications Ferrous Gluconate 325 mg PO DAILY@0800 07/28/16 Folic Acid 0.8 mg PO DAILY 07/28/16 Vit No.130/Iron/Folic [ Vitamins] 1 each PO DAILY 07/28/16 Estrogens, Conjugated [Premarin] 1 dose VAGINAL DAILY #1 tube 08/25/16 Ibuprofen [Motrin] 800 mg PO TID PRN #30 tablet 08/25/16 Oxycodone HCl/Acetaminophen [Percocet 5/325] 1 - 2 tablet PO Q4H PRN PRN #20 tablet 08/25/16 Smoking Status: Former smoker Alcohol: None Number of Fetus(es): 1 Heart Tracing: Normal baseline, moderate variability, excels. Category 1 upon admission. Now with normal baseline, moderate variability and some accelerations. No repetitive decelerations TOCO Analysis: Tocometer shows contractions every 2 to 4-minute History Past Pregnancies: Past Pregnancies Delivery Name GA/Weeks Outcome Route WeiInfant GeLabor LenAnesthesiDelivery Provider FOB Date ght nder gth a Location Expected Infant Delivery Method: Spontaneous Vaginal Review of Systems Constitutional: Denies: Anorexia, Chills, Fever Eyes: Denies: Blurred vision Cardiovascular: Denies: Chest Pain Respiratory: Denies: Cough Gastrointestinal: Denies: Abdominal Pain Skin: Denies: Rash Physical Exam General: Alert, Cooperative, No apparent distress Cardiovascular: Regular rate Lungs: Normal air movement Abdomen: Soft, Non Tender, Non-Distended, Gravid Extremities:: Other - edema 1+ 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 33-year-old 3 para 10/11/2002 at 37-5/7 weeks gestation in labor. Admitted for early labor. Will initiate group B strep prophylaxis. Pitocin augmentation if needed. Patient may have epidural if needed. Estimated weight is less than 4500 g clinically and pelvis is adequate to expect vaginal delivery. 09/28/18 2529 <Electronically signed by Shruthi Finn MD> Date Shruthi Finn MD Cosigner Signature: Date (if applicable) CC: PODIATRY PROFESSOR Woodrow Cueto; Shrutih Finn MD Signed CBC-COMPLETE BLOOD CNT Collected: 09/28/2018 Status: F Source: [place] NO DIFF 12:45 PM [facility] [place] TYPE CODE TESTS RESULT OUT OF RANGE REFERENCE UNITS LAB L100.1000 4.4-11.0 K/mm3 High WBC 15.1 LAB L100.1200 4.2-5.4 M/mm3 Normal RBC 4.37 LAB L100.1300 12.0-15.0 g/dl Low HGB 11.4 LAB L100.1400 37-47 % Low HCT 35.9 LAB L100.1500 81-99 fL Normal MCV 82.2 LAB L100.1600 27.0-32.0 pg Low MCH 26.1 LAB L100.1700 32-36 g/gl Low MCHC 31.8 LAB L100.1810 11.6-14.6 % High RDW CV 15.8 LAB L100.1820 35.1-43.9 fl High RDW SD 46.7 LAB L100.1900 150-450 K/mm3 Normal PLT 337 LAB L100.2000 6.2-12.0 fl Normal MPV 10.0 Performed By: #### L100.0500 #### [facility] [address] [place], [address] TYPE AND SCREEN Collected: 09/28/2018 Status: F Source: [place] 12:45 PM [facility] [place] Order Comment: Reason for Type AND Screen/Red Cells: ROUTINE TYPE CODE TESTS RESULT OUT OF RANGE REFERENCE UNITS LAB B10.0800 A Normal BLOOD TYPE GEL POSITIVE LAB B100.4000 Normal Antibody NEGATIVE Screen Performed By: #### B101.7450 #### [facility] [address] [place], [address] PROGRESS Observed: 09/19/2018 Status: COMPLETED Source: [place] 5:21 PM [facility] REPOSITORY HNO ID: [id number] Author: Lizet Ahn Service: (none) Author Type: Railroad Track Inspector Type: Progress Notes Filed: 09/19/2018 5:22 PM Note Text: CM - S: Peyman Pickens presents for a routine OB visit at 36w3d. She denies LOF, VB, DFM or cramping/contractions. Review of ultrasound results from last visit - EFW = 85%ile, CHRIS WNL. O: See flow sheet Gen: A+O x 3, NAD Abdomen: NT x 4 quadrants, S>D (FH = 38cm). Baby OP, EFW = 6# by Papito'jesika Extremities: No edema noted A/P: 36w3d IUP. Normal . RTO 1 Weeks for follow up. Call with LOF, VB, DFM or cramping/contractions. 1. 36 weeks gestation of -GBS screening done today. -Labor precautions and [facility] teaching done. - URINE OB DIP B/O - STREPTOCOCCUS B PCR Lizet Ahn APRN.CNM GROUP B STREP PCR Collected: 09/19/2018 Status: F Source: [place] 4:50 PM [facility] REPOSITORY TYPE CODE TESTS RESULT OUT OF RANGE REFERENCE UNITS LAB GBPCRT Positive for Abnormal Group B Alert GROUP B Streptococcus by STREP PCR PCR. If susceptibility testing is needed and was not requested with initial test order, call lab ([phone]) within 5 days to initiate workup. Performed By: #### GBPCR #### [facility] [address] [place], [place] [address] PROGRESS Observed: 09/09/2018 Status: COMPLETED Source: [place] 2:31 PM [facility] REPOSITORY HNO ID: [id number] Author: Kisha Robrets Service: (none) Author Type: Physician Type: Progress Notes Filed: 09/09/2018 2:32 PM Note Text: A alejandra intrauterine The size is AGA at the upper limits of normal at the 89 th% The fetus is symmetrically large Estimated Date of Delivery: 10/14/18 EGA = 35w0d The anatomy appears normal in the areas visualized. The amniotic fluid volume is normal. There is no evidence of effusions and/ or hydrops. The placenta is fundal. RECOMMENDATIONS: - Self-assessment of kick counts - Follow up ultrasound as clinically indicated PROGRESS Observed: 09/06/2018 Status: COMPLETED Source: [place] 4:23 PM [facility] REPOSITORY HNO ID: [id number] Author: iLnda Menezes Ma Service: (none) Author Type: (none) Type: Progress Notes Filed: 09/08/2018 12:13 PM Note Text: Patient identified by name and date of . Peyman Pickens presents today for a vaccination of Tdap. Patient denies an allergy to latex: yes Patient denies a severe (life-threatening) allergy to a previous dose of Tdap, DTP, DTaP, DT or Td vaccine. Yes Patient denies history of epilepsy or neurological problems: Yes Patient is afebrile and denies being moderately or severely ill: Yes Patient denies history of Guillain-Ennis Syndrome (a severe paralytic illness): Yes Tdap Adacel injection was given without incident. See immunizations for details of immunizations administered today. VIS sheet provided: Yes Provider Esteban Barroso CNM was present in office at time of injection. Linda Menezes Ma PROGRESS Observed: 08/15/2018 Status: COMPLETED Source: [place] 10:26 AM [facility] RE[facility] HNO ID: [id number] Author: Lizet Ahn Service: (none) Author Type: Railroad Track Inspector Type: Progress Notes Filed: 08/15/2018 10:27 AM Note Text: CM - S: Peyman Pickens presents for an add-on urgent OB visit at 31w3d. She denies LOF, VB, DFM or cramping/contractions. Reports increased fatigue, and even at rest. Reports rare SOB with activity but denies heart palpitations. Arms feeling heavy when lifting arms. Increased thirst noted yesterday also. Increased dizziness this morning - had been sleeping on the couch. No n/v or diarrhea. Reports a few BHx. Taking Iron supplement every other day. Denies fever, MCDANIEL, scotoma. O: See flow sheet Gen: A+O x 3, NAD Neuro: CN II-XII intact, PERRLA Chest: Normal Air Movement noted, no use of accessory muscles noted, CTAB, RRR Abdomen: NT x 4 quadrants, S=D Extremities: No edema in LE A/P: 31w3d IUP. Normal . RTO 1 Weeks for follow up as scheduled. Call with LOF, VB, DFM or cramping/contractions. 1. 31 weeks gestation of -Symptoms likely normal symptoms of - anticipatory teaching done -C teaching and PTL precautions reviewed - URINE OB DIP B/O Lizet Ahn APRN.CNM CBC AND DIFFERENTIAL Collected: 07/28/2018 Status: F Source: [place] 3:14 PM [facility] REPOSITORY TYPE CODE TESTS RESULT OUT OF REFERENCE UNITS RANGE LAB WBC 3.70-11.00 k/uL WBC High 12.26 LAB RBC 3.90-5.20 m/uL RBC 4.13 LAB HGB 11.5-15.5 g/dL Low Hemoglobin 11.0 LAB HCT 36.0-46.0 % Low Hematocrit 35.5 LAB MCV 80.0-100.0 fL MCV 86.0 LAB MCH 26.0-34.0 pG MCH 26.6 LAB MCHC 30.5-36.0 g/dL MCHC 31.0 LAB RDWCV 11.5-15.0 % RDW-CV 15.0 LAB PLTCT 150-400 k/uL Platelet Count 331 LAB MPV 9.0-12.7 fL MPV 10.1 LAB ANEUT % Neut% 80.3 LAB AANEUT 1.45-7.50 k/uL Abs Neut High 9.85 LAB ALYMP % Lymph% 13.0 LAB AALYMP 1.00-4.00 k/uL Abs Lymph 1.59 LAB AMONO % Blaine% 5.5 LAB AAMONO <0.87 k/uL Abs Blaine 0.67 LAB AEOS % Eosin% 0.9 LAB AAEOS <0.46 k/uL Abs Eosin 0.11 LAB ABASO % Baso% 0.3 LAB AABASO <0.11 k/uL Abs Baso 0.04 LAB AUNRBC 0 /100 WBC NRBCs 0.0 LAB ABNRBC <0.01 k/uL Absolute nRBC <0.01 LAB DTYP DTYPE Auto Diff Performed By: #### CBCDIF #### [facility] [address] [place], [place] [address] 50G, 1HR GEST. Collected: 07/28/2018 Status: F [facility] REPOSITORY TYPE CODE TESTS RESULT OUT OF REFERENCE UNITS RANGE LAB GLUP 74-134 mg/dL Glucose 122 Screen, Preg Result Comment: [place] [employer] of [employer]stetric[employer] and Gynec[employer] (Hernandez/Shelton) guidelines state a gestational diabetes mellitus positive screen is made, in women not previously diagnosed with overt diabetes, when the 1 hr plasma glucose level is equal to or above 140 mg/dL. The [facility] [place] recommends a 135 mg/dL cutoff. Performed By: #### GLTGST #### [facility] [address] [place], [place] [address] PROGRESS Observed: 07/28/2018 Status: COMPLETED Source: [place] 2:57 PM [facility] REPOSITORY HNO ID: [id number] Author: Kisha Roberts Service: (none) Author Type: Physician Type: Progress Notes Filed: 07/28/2018 2:57 PM Note Text: A alejandra intrauterine The size is AGA Estimated Date of Delivery: 10/14/18 EGA = 28w6d The anatomy appears normal in the areas visualized. The amniotic fluid volume is normal. There is no evidence of effusions and/ or hydrops. The placenta is fundal. RECOMMENDATIONS: - Self-assessment of kick counts - Follow up ultrasound as clinically indicated PROGRESS Observed: 07/28/2018 Status: COMPLETED Source: [place] 2:[address] [facility] [place] REPOSITORY HNO ID: [id number] Author: Riri So Ma Service: (none) Author Type: (none) Type: Progress Notes Filed: 07/28/2018 4:30 PM Note Text: 33 year old female here for INACTIVATED INFLUENZA VACCINE. 4278-5099 Season Patient is identified by name and date of : Yes [] CONTRAINDICATIONS color enhanced section Age less than 6 months? No Allergy to eggs, chicken, chicken feathers, or chicken dander? No Allergy to thimerosal (a preservative) or formaldehyde, gelatin? No History of severe reaction to any vaccine component or a previous dose of influenza vaccination? No History of Guillain-Ennis Syndrome within 6 weeks after a previous influenza vaccine? No Patient is not moderately or severely ill? No Current temperature greater or equal to 100.4F? No History of Bone Marrow Transplant prior 6 months or solid organ transplant in the past 3 months ? No History of fainting after a prior injection or medical procedure? No- ? If patient has fainted in the past, the CDC recommends sitting or lying down for 15 minutes after the vaccination. [] VERIFICATION color enhanced section Was the answer Yes for any of the above contraindications? No contraindications present. Acceptable to proceed with vaccine. Patient/guardian agrees the above answers are true to the best of their knowledge? Yes Flu vaccine information sheet given? Yes See immunization activity in [facility] for details of immunizations adminstered today. Patient age: [age] year old For The 8226-7470 Flu Season 6-35 months old: Fluzone 0.25 ml - IM (Preservative Free) 3 years of age: Fluzone 0.5 ml - IM (Preservative Free) 3 years and older: Fluzone 0.5 ml- IM-(with Preservatives) 65+ years old: 2-49 years old Fluzone High-Dose 0.5 ml - IM (Preservative Free) FLUMIST- intranasal REMEMBER: If patient is less than 9 years of age and this is the first vaccine of Influenza to be received in any flu season, they should receive a second dose in one months time. PROGRESS Observed: 05/26/2018 Status: COMPLETED Source: [place] 2:16 PM [facility] REPOSITORY HNO ID: [id number] Author: Kisha Roberts Service: (none) Author Type: Physician Type: Progress Notes Filed: 05/26/2018 2:21 PM Note Text: A alejandra fetus in utero with symmetric measurements Adequate growth (AGA). Estimated Date of Delivery: 10/14/18 EGA = 19w6d The anatomy appears normal. There are no evident malformations and /or effusions. No genetic markers are noted. The amniotic fluid volume is within normal limits. Posterior partial placenta previa is noted Normal cervical length without dynamic changes The sensitivity of ultrasound in the detection of malformations overall is approximately 35%. RECOMMENDATIONS: - Follow up ultrasound recommended in 6 weeks for reevaluation of placental location - Pelvic rest and avoidance of exercise - Delivery by section in the unlikely situation where the placenta remains within 2.0 cm of the internal cervical os at term. SEQUENT SCRN SECOND Collected: 04/28/2018 Status: F Source: [place] [facility] PATIENTS ONLY 1:48 PM [facility] REPOS[facility] TYPE CODE TESTS RESULT OUT OF REFERENCE UNITS RANGE LAB SE1PAP MoM 0.55 SE1 YEESNIA A LAB SE2AFP MoM 1.54 SE2 AFP LAB SE2HCG MoM 1.13 SE2 hCG LAB SE2UE3 MoM 0.75 SE2 Unconj uE3 LAB SE2INH MoM 1.06 SE2 Dimrc Inhibin A LAB SE1HCG MoM 1.33 SE1 hCG LAB SE2INT Screen Negative SE2 Interp Screen Negative LAB SE2SDN SE2 Scrn Rsk <1:37738 Dn Synd LAB SE2ADN 1:550 SE2 Age Rsk Dn Snyd LAB SE2STS SE2 Scr Rsk <1:76524 Trsmy 13 LAB SE2STR SE2 Scr Rsk <1:78486 Trsmy18 LAB SE2SON SE2 Scr Rsk 1:2300 ONTD LAB SE2RS View Seq Scrn results in Second Trim Scanned Documents link when available. LAB SEQLRV SEQ Staff Reviewed by Review Garett Mayer MD, PhD ([id number]) Performed By: #### SEQL2 #### [facility] [address] [place], [place] [address] PROGRESS Observed: 04/28/2018 Status: COMPLETED Source: [place] 1:[address] [facility] [place] REPOSITORY HNO ID: [id number] Author: Lizet Castro) Ajit Service: (none) Author Type: Railroad Track Inspector Type: Progress Notes Filed: 04/28/2018 1:34 PM Note Text: CM - S: Peyman Pickens presents for a routine OB visit at 15w6d. She denies LOF, VB, DFM or cramping/contractions. O: See flow sheet Gen: A+O x 3, NAD Abd: NT x 4 quadrants, S=D Extremities: No edema in LE A/P: 15w6d IUP. Normal . RTO 4 Weeks for follow up. Call with LOF, VB, DFM or cramping/contractions. 1. Encounter for supervision of other normal in second trimester -2nd trimester anatomy scan ultrasound at n.v. - URINE OB DIP B/O 2. 15 weeks gestation of -2nd trimester genetic screening today - URINE OB DIP B/O Lizet Ahn APRN.ALEXA PROGRESS Observed: 03/29/2018 Status: COMPLETED Source: [place] 10:[address] [facility] RE[facility]ITORY HNO ID: [id number] Author: Ricardo Torres Service: (none) Author Type: Physician Type: Progress Notes Filed: 03/29/2018 10:45 AM Note Text: Please see ultrasound report for details of this visit. Ricardo Torres M.D. SEQUENT SCRN FIRST Collected: 03/29/2018 Status: F Source: [place] [facility] PATIENTS ONLY 10:[address] [facility] REPOSITORY TYPE CODE TESTS RESULT OUT OF REFERENCE UNITS RANGE LAB SE1PAP MoM 0.53 SE1 YESENIA A LAB SE1HCG MoM 1.32 SE1 hCG LAB SE1INT Final result pending second Final trimester SE1 result pending sample Interp second trimester sample LAB SE1SDN 1:780 SE1 Scrn Rsk Dn Synd LAB SE1ADN 1:400 SE1 Age Rsk Dn Synd LAB SE1STR SE1 Scr <1:17840 Rsk Trsmy18 LAB SE1ATR SE1 Age 1:1700 Rsk Trsmy18 LAB SE1RS View Seq Scrn results in First Trim Scanned Documents link when available. LAB SEQLRV SEQ Staff Reviewed by Review Samantha Nettles, Ph.D. Performed By: #### SEQL1 #### [facility] [address] [id number] PROGRESS Observed: 03/04/2018 Status: COMPLETED Source: [place] 8:53 AM [facility] RE[facility] HNO ID: [id number] Author: [place] Shadi Service: (none) Author Type: Nurse Practitioner Type: Progress Notes Filed: 03/04/2018 9:37 AM Note Text: Subjective HPI HPI Peyman Pickens is a 32 year old female who presents today for CC of sinus congestion, and ear pain, and cough This started 3 days ago She is also having ear pressure Symptoms are worsened by nothing. She has tried tylenol as needed. 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 PMH 8 weeks BP 108/70 Pulse 78 Temp 37.2 ?C (98.9 ?F) (Tympanic) Resp 16 Wt 87.1 kg (192 lb) LMP 12/28/2017 (Approximate) BMI 36.28 kg/m? ALLERGIES No Known Allergies ACTIVE PROBLEM LIST Family History of Defects Positive Gbs Test Obesity in History of Depression Patient Requested Diagnostic Testing Family History of Carrier of Genetic Disease History of Infertility Family History Problem Relation Age of Onset - Hypertension Father - Colon polys [OTHER] Father - Gout [OTHER] Father - Pulmonary Embolism [OTHER] Father - Psychiatry Sister anxiety/depression - Hypertension Maternal Grandmother - Osteoporosis Maternal Grandmother - parkinson's disease [OTHER] Maternal Grandmother - Emphysema Maternal Grandfather - Diabetes Paternal Grandfather - Lymphoma [OTHER] Paternal Grandfather - Asthma Brother childhood Social History Marital status: Spouse name: Yash Years of education: 16 Number of children: 3 Occupational History 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 Negative for chills and malaise/fatigue. HENT: Positive for congestion, ear pain (pressure.), sinus pain and sore throat (scratchy). Respiratory: Negative for cough, sputum production, shortness of breath and wheezing. Cardiovascular: Negative for chest pain. Musculoskeletal: Positive for myalgias. Skin: Negative for rash. Neurological: Negative for headaches. Objective Physical Exam Constitutional: She is well-developed, well-nourished, and in no distress. HENT: Head: Normocephalic and atraumatic. Right Ear: Tympanic membrane, external ear and ear canal normal. Tympanic membrane is not injected, not erythematous, not retracted and not bulging. No middle ear effusion. Left Ear: External ear and ear canal normal. Tympanic membrane is not injected, not erythematous, not retracted and not bulging. A middle ear effusion (serous) is present. Nose: Mucosal edema and rhinorrhea present. Right sinus exhibits maxillary sinus tenderness and frontal sinus tenderness. Left sinus exhibits maxillary sinus tenderness and frontal sinus tenderness. Mouth/Throat: Uvula is midline, oropharynx is clear and moist and mucous membranes are normal. No oropharyngeal exudate, posterior oropharyngeal edema, posterior oropharyngeal erythema or tonsillar abscesses. Eyes: Conjunctivae and EOM are normal. Pupils are equal, round, and reactive to light. Neck: Normal range of motion. Cardiovascular: Normal rate, regular rhythm and normal heart sounds. Pulmonary/Chest: Effort normal and breath sounds normal. No respiratory distress. She has no decreased breath sounds. She has no wheezes. She has no rhonchi. She has no rales. Lymphadenopathy: Head (right side): No submental, no submandibular, no tonsillar, no preauricular and no posterior auricular adenopathy present. Head (left side): No submental, no submandibular, no tonsillar, no preauricular and no posterior auricular adenopathy present. She has cervical adenopathy. Right cervical: Superficial cervical adenopathy present. No posterior cervical adenopathy present. Left cervical: Superficial cervical adenopathy present. No posterior cervical adenopathy present. Right: No supraclavicular adenopathy present. Left: No supraclavicular adenopathy present. Skin: Skin is warm and dry. Psychiatric: Affect normal. Nursing note and vitals reviewed. ASSESSMENT/PLAN: 1. Strep pharyngitis - ICD9: 034.0, ICD10: J02.0 (primary diagnosis) - suspect strep - Rapid Strep positive in the office today - antibiotic as written and Amoxicillin for 10 days. - Discussed supportive care treatment with fluids, rest and analgesia. - The patient may also use warm salt water gargles, throat lozenges and/or OTC throat spray as needed. - The patient should follow up in one week if symptoms persist or worsen - Call back if drooling, increased temperature, symptoms of dehydration and/or still sick in one week - AMOXICILLIN 500 MG CAPSULE 2. Sore throat - ICD9: 462, ICD10: J02.9 Your throat culture was positive for strep throat. You need to take all of the antibiotic as prescribed. Do not stop taking it early, even if you are feeling better as it will not kill off all of the bacteria and the strep will return. You can take Tylenol or Motrin as needed for pain. Gargle with salt water and use Cepacol lozenges or throat numbing sprays can also help reduce sore throat pain. Change your toothbrush in 3 days. The strep bacteria can live on the toothbrush and re-infect you. Tylenol (generic acetaminophen) 500 mg-2 tabs every 8 hrs. as needed for fever and aches Ibuprofen 600 mg (3-200mg tablets) every 6 hours -Sudafed (generic is fine), behind the counter, 2x30 mg tabs twice daily as needed for congestion -Mucinex (generic is fine) 1200 mg twice daily to help with cough and to thin out mucus - RAPID STREP TEST B/O * Seek medical care immediately, call 911, go to ER if you have chest pain, difficulty breathing, shortness of breath, inability to swallow. Diagnosis and treatment plan were discussed and questions were answered to the patient's satisfaction. Pt acknowledged understanding of concepts and follow up plan. Specific signs and symptoms that would indicate the need for higher level of care were discussed in detail warranting prompt ER evaluation. Asia Hsu APRN.CNP CNOV Observed: 03/04/2018 Status: COMPLETED Source: [place] 8:30 AM [facility] REPOSITORY Office Visit (UCWSTR) NELIAPEYMAN G ([id number]) 1985 F Date Time Provider Department 03/04/18 8:30 AM ASIA HSU (HERMINIA) WSTR During your visit today, we recorded the following information about you: Temperature Pulse Respiration Blood pressure 98.9 degrees 78/minute 16/minute 108/70 Weight 87.1 kg Asia Hsu APRN.CNP 03/04/2018 9:37 AM Signed Subjective HPI HPI Peyman Madeline Pickens is a 32 year old female who presents today for CC of sinus congestion, and ear pain, and cough This started 3 days ago She is also having ear pressure Symptoms are worsened by nothing. She has tried tylenol as needed. 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 PMH 8 weeks BP 108/70 Pulse 78 Temp 37.2 ?C (98.9 ?F) (Tympanic) Resp 16 Wt 87.1 kg (192 lb) LMP 12/28/2017 (Approximate) BMI 36.28 kg/m? ALLERGIES No Known Allergies ACTIVE PROBLEM LIST Family History of Defects Positive Gbs Test Obesity in History of Depression Patient Requested Diagnostic Testing Family History of Carrier of Genetic Disease History of Infertility Family History Problem Relation Age of Onset - Hypertension Father - Colon polys [OTHER] Father - Gout [OTHER] Father - Pulmonary Embolism [OTHER] Father - Psychiatry Sister anxiety/depression - Hypertension Maternal Grandmother - Osteoporosis Maternal Grandmother - parkinson's disease [OTHER] Maternal Grandmother - Emphysema Maternal Grandfather - Diabetes Paternal Grandfather - Lymphoma [OTHER] Paternal Grandfather - Asthma Brother childhood Social History Marital status: Spouse name: Yash Years of education: 16 Number of children: 3 Occupational History 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 Negative for chills and malaise/fatigue. HENT: Positive for congestion, ear pain (pressure.), sinus pain and sore throat (scratchy). Respiratory: Negative for cough, sputum production, shortness of breath and wheezing. Cardiovascular: Negative for chest pain. Musculoskeletal: Positive for myalgias. Skin: Negative for rash. Neurological: Negative for headaches. Objective Physical Exam Constitutional: She is well-developed, well-nourished, and in no distress. HENT: Head: Normocephalic and atraumatic. Right Ear: Tympanic membrane, external ear and ear canal normal. Tympanic membrane is not injected, not erythematous, not retracted and not bulging. No middle ear effusion. Left Ear: External ear and ear canal normal. Tympanic membrane is not injected, not erythematous, not retracted and not bulging. A middle ear effusion (serous) is present. Nose: Mucosal edema and rhinorrhea present. Right sinus exhibits maxillary sinus tenderness and frontal sinus tenderness. Left sinus exhibits maxillary sinus tenderness and frontal sinus tenderness. Mouth/Throat: Uvula is midline, oropharynx is clear and moist and mucous membranes are normal. No oropharyngeal exudate, posterior oropharyngeal edema, posterior oropharyngeal erythema or tonsillar abscesses. Eyes: Conjunctivae and EOM are normal. Pupils are equal, round, and reactive to light. Neck: Normal range of motion. Cardiovascular: Normal rate, regular rhythm and normal heart sounds. Pulmonary/Chest: Effort normal and breath sounds normal. No respiratory distress. She has no decreased breath sounds. She has no wheezes. She has no rhonchi. She has no rales. Lymphadenopathy: Head (right side): No submental, no submandibular, no tonsillar, no preauricular and no posterior auricular adenopathy present. Head (left side): No submental, no submandibular, no tonsillar, no preauricular and no posterior auricular adenopathy present. She has cervical adenopathy. Right cervical: Superficial cervical adenopathy present. No posterior cervical adenopathy present. Left cervical: Superficial cervical adenopathy present. No posterior cervical adenopathy present. Right: No supraclavicular adenopathy present. Left: No supraclavicular adenopathy present. Skin: Skin is warm and dry. Psychiatric: Affect normal. Nursing note and vitals reviewed. ASSESSMENT/PLAN: 1. Strep pharyngitis - ICD9: 034.0, ICD10: J02.0 (primary diagnosis) - suspect strep - Rapid Strep positive in the office today - antibiotic as written and Amoxicillin for 10 days. - Discussed supportive care treatment with fluids, rest and analgesia. - The patient may also use warm salt water gargles, throat lozenges and/or OTC throat spray as needed. - The patient should follow up in one week if symptoms persist or worsen - Call back if drooling, increased temperature, symptoms of dehydration and/or still sick in one week - AMOXICILLIN 500 MG CAPSULE 2. Sore throat - ICD9: 462, ICD10: J02.9 Your throat culture was positive for strep throat. You need to take all of the antibiotic as prescribed. Do not stop taking it early, even if you are feeling better as it will not kill off all of the bacteria and the strep will return. You can take Tylenol or Motrin as needed for pain. Gargle with salt water and use Cepacol lozenges or throat numbing sprays can also help reduce sore throat pain. Change your toothbrush in 3 days. The strep bacteria can live on the toothbrush and re-infect you. Tylenol (generic acetaminophen) 500 mg-2 tabs every 8 hrs. as needed for fever and aches Ibuprofen 600 mg (3-200mg tablets) every 6 hours -Sudafed (generic is fine), behind the counter, 2x30 mg tabs twice daily as needed for congestion -Mucinex (generic is fine) 1200 mg twice daily to help with cough and to thin out mucus - RAPID STREP TEST B/O * Seek medical care immediately, call 911, go to ER if you have chest pain, difficulty breathing, shortness of breath, inability to swallow. Diagnosis and treatment plan were discussed and questions were answered to the patient's satisfaction. Pt acknowledged understanding of concepts and follow up plan. Specific signs and symptoms that would indicate the need for higher level of care were discussed in detail warranting prompt ER evaluation. CLAUDE Lundberg APRN.CNP 03/04/2018 9:10 AM Signed ASSESSMENT/PLAN: 1. Strep pharyngitis - ICD9: 034.0, ICD10: J02.0 (primary diagnosis) - suspect strep - Rapid Strep positive in the office today - antibiotic as written and Amoxicillin for 10 days. - Discussed supportive care treatment with fluids, rest and analgesia. - The patient may also use warm salt water gargles, throat lozenges and/or OTC throat spray as needed. - The patient should follow up in one week if symptoms persist or worsen - Call back if drooling, increased temperature, symptoms of dehydration and/or still sick in one week - AMOXICILLIN 500 MG CAPSULE 2. Sore throat - ICD9: 462, ICD10: J02.9 Your throat culture was positive for strep throat. You need to take all of the antibiotic as prescribed. Do not stop taking it early, even if you are feeling better as it will not kill off all of the bacteria and the strep will return. You can take Tylenol or Motrin as needed for pain. Gargle with salt water and use Cepacol lozenges or throat numbing sprays can also help reduce sore throat pain. Change your toothbrush in 3 days. The strep bacteria can live on the toothbrush and re-infect you. Tylenol (generic acetaminophen) 500 mg-2 tabs every 8 hrs. as needed for fever and aches Ibuprofen 600 mg (3-200mg tablets) every 6 hours -Sudafed (generic is fine), behind the counter, 2x30 mg tabs twice daily as needed for congestion -Mucinex (generic is fine) 1200 mg twice daily to help with cough and to thin out mucus - RAPID STREP TEST B/O * Seek medical care immediately, call 911, go to ER if you have chest pain, difficulty breathing, shortness of breath, inability to swallow. Referring Provider: SELF [200] Allergies As of Date: 03/04/2018 (No Known Allergies) Date Reviewed: 03/04/2018 Reviewed by: Asia Hsu - Fully Assessed Reason for Visit: Sinus Problem [99] Cmt: sinus pressure, cough, ear pain, fever x 3 days Primary Visit Diagnosis:Strep pharyngitis [J02.0] Other Visit Diagnosis:Sore throat [J02.9] Order(s):amoxicillin (POLYMOX, AMOXIL) 500 mg capsuleTake 1 capsule by mouth twice daily for 10 days.Disp: 20 capsuleRfl: 0 RAPID STREP TEST B/O [[id number]] Order #: [id number] Prescriptions as of 03/04/2018 Sig: VITAMIN,CALCIUM,MINE* Take 1 tablet by mouth. SERTRALINE 50 MG TABLET Take 1 tablet by mouth once d* AMOXICILLIN 500 MG CAPSULE Take 1 capsule by mouth twice* Problem List As Of Date 03/04/2018 Noted Resolved with care elsewhere [Z34.90] INVALID FOR*09/14/2013 More... Spotting in first trimester [O26.851] INVALID FOR*05/23/2013 More... Family history of defects [Z82.79] INVALID FOR*09/14/2013 More... Supervision of normal first [Z34.00] INVALID FOR*09/14/2013 More... Monochorionic diamniotic twin gestation in thir*INVALID FOR*02/25/2018 More... Family history of defects [Z82.79] INVALID FOR* More... Placenta previa in second trimester [O44.02] INVALID FOR*07/16/2016 32 weeks gestation of [Z3A.32] INVALID FOR*07/24/2016 Positive GBS test [B95.1] INVALID FOR* Obesity in [O99.210] INVALID FOR* More... History of depression [Z86.59] INVALID FOR* More... Patient requested diagnostic testing [Z01.89] INVALID FOR* More... Family history of carrier of genetic disease [Z*INVALID FOR* More... History of infertility [Z87.42] INVALID FOR* More... Other instructions from your clinician: ASSESSMENT/PLAN: 1. Strep pharyngitis - ICD9: 034.0, ICD10: J02.0 (primary diagnosis) - suspect strep - Rapid Strep positive in the office today - antibiotic as written and Amoxicillin for 10 days. - Discussed supportive care treatment with fluids, rest and analgesia. - The patient may also use warm salt water gargles, throat lozenges and/or OTC throat spray as needed. - The patient should follow up in one week if symptoms persist or worsen - Call back if drooling, increased temperature, symptoms of dehydration and/or still sick in one week - AMOXICILLIN 500 MG CAPSULE 2. Sore throat - ICD9: 462, ICD10: J02.9 Your throat culture was positive for strep throat. You need to take all of the antibiotic as prescribed. Do not stop taking it early, even if you are feeling better as it will not kill off all of the bacteria and the strep will return. You can take Tylenol or Motrin as needed for pain. Gargle with salt water and use Cepacol lozenges or throat numbing sprays can also help reduce sore throat pain. Change your toothbrush in 3 days. The strep bacteria can live on the toothbrush and re-infect you. Tylenol (generic acetaminophen) 500 mg-2 tabs every 8 hrs. as needed for fever and aches Ibuprofen 600 mg (3-200mg tablets) every 6 hours -Sudafed (generic is fine), behind the counter, 2x30 mg tabs twice daily as needed for congestion -Mucinex (generic is fine) 1200 mg twice daily to help with cough and to thin out mucus - RAPID STREP TEST B/O * Seek medical care immediately, call 911, go to ER if you have chest pain, difficulty breathing, shortness of breath, inability to swallow. Prescriptions ordered this encounter Disp Refills Start End AMOXICILLIN 500 MG CAPSULE 20 c* 0 03/04/2018 03/14/2018 Route: ORAL Sig: Take 1 capsule by mouth twice daily for 10 days. Medications Discontinued During This Encounter fluconazole (DIFLUCAN) 150 mg tablet 1 ta* 1 09/30/2017 03/04/2018 Route: ORAL Sig: Take 1 tablet by mouth once daily. Patient not taking: Reported on 02/17/2018 Disc: Course of therapy completed Encounter Status:Closed by ASIA HSU CNP on 03/04/18 TOXICOLOGY SCREEN,UR Collected: 02/25/2018 Status: F Source: [place] 2:[address] [facility] [place] REPOSITORY TYPE CODE TESTS RESULT OUT OF REFERENCE UNITS RANGE LAB UPCP2 Negative Negative Phencyclidin e, Urine Result Comment: Cutoff threshold at 25 ng/mL. LAB UBENZ2 Negative Benzodiazepines, Ur Negative Result Comment: Cutoff threshold at 200 ng/mL. LAB UCOC2 Negative Cocaine, Negative Urine Result Comment: Cutoff threshold at 300 ng/mL. LAB UAMPH2 Negative Amphetamines, Urine Negative Result Comment: Cutoff threshold at 1000 ng/mL. LAB UTHC2 Negative Cannabinoids, Urine Negative Result Comment: Cutoff threshold at 50 ng/mL. LAB UOPI2 Negative Opiates, Negative Urine Result Comment: Cutoff threshold at 300 ng/mL. LAB UBARB2 Negative Barbiturates, Urine Negative Result Comment: Cutoff threshold at 200 ng/mL. LAB UETOH <11 mg/dL <11 Ethanol, Urine LAB UOXYC Negative Oxycodone, Negative Urine Result Comment: Cutoff threshold at 100 ng/mL. Comment: Immunoassay screen only. Cross reactivity with other substances can occur with immunoassay screening. Detection of any drug(s) in this urine toxicology panel is presumptive only. These tests are for med ica purposes only and should not be used for compliance monitoring, legal, or forensic use. In clinical settings, confirmatory testing is at the practitioner's discretion [1]. If clinically indicated, confirmation by high specificity, quantitative methodology may be requested on the same speci men through Client Services ([phone]) if contacted within 48 hours of initial testing. [1]Substance Abuse and Mental Health Services Administration (2012). Clinical Drug Testing in Primary Care Technical Assistance Publication Series 32. Department of Health and Human Services, [place], p.10. These tests were developed and their performance characteristics determined by [facility]'s [facility] [place] ( [facility]). They have not been cleared or a pproved by the FDA. [facility] is regulated under CLIA as qualified to perform high complexity testing. These tests are used for clinical purposes. They should not be regarded as investigational or for research. Performed By: #### UTOX2 #### [facility] [address] [place], [place] [address] Observed: 02/25/2018 Status: F Source: [place] URINE CULTURE 2:[address] [facility] REPOSITORY Sp. Request/Comment: - Specimen received in preservative Culture Result - No growth (<1,000 CFU/ml) Performed By: #### URCUL #### [facility] [address], [place] [id number] 50G, 1HR GEST. Collected: 02/25/2018 Status: F Source: [place] GSCRN 11:41 AM [facility] REPOSITORY TYPE CODE TESTS RESULT OUT OF REFERENCE UNITS RANGE LAB GLUP 74-134 mg/dL Glucose 126 Screen, Preg Result Comment: [place] [employer] of [employer] and [employer]nec[employer] (Hernandez/Tonjastan) guidelines state a gestational diabetes mellitus positive screen is made, in women not previously diagnosed with overt diabetes, when the 1 hr plasma glucose level is equal to or above 140 mg/dL. The [facility] [place] recommends a 135 mg/dL cutoff. Performed By: #### GLTGST #### [facility] [address], [place] [address] CBC Collected: 02/25/2018 Status: F Source: [place] 11:40 AM [facility] REPOSITORY TYPE CODE TESTS RESULT OUT OF REFERENCE UNITS RANGE LAB WBC 3.70-11.00 k/uL WBC 10.23 LAB RBC 3.90-5.20 m/uL RBC 4.94 LAB HGB 11.5-15.5 g/dL Hemoglobin 12.5 LAB HCT 36.0-46.0 % Hematocrit 41.3 LAB MCV 80.0-100.0 fL MCV 83.6 LAB MCH 26.0-34.0 pG Low MCH 25.3 LAB MCHC 30.5-36.0 g/dL Low MCHC 30.3 LAB RDWCV 11.5-15.0 % RDW-CV High 16.8 LAB PLTCT 150-400 k/uL Platelet Count 329 LAB MPV 9.0-12.7 fL MPV 9.8 LAB ABSNUC <0.01 k/uL Absolute nRBC <0.01 Performed By: #### CBC, SYPHGX, HBSAG, HIV12C, RUBIGG #### [facility] [address], [place] [address] SYPHILIS IGG WITH Collected: 02/25/2018 Status: F Source: [facility] 11:40 AM [facility] REPOSITORY TYPE CODE TESTS RESULT OUT OF REFERENCE UNITS RANGE LAB SYPHQL Nonreactive Syphilis IgG, Nonreactive Qual Result Comment: In conjunction with this result, the immune status of the patient should be evaluated based on their clinical status, related risk factors, and other diagnostic test results. LAB SYPHLG AI Syphilis IgG 0.4 Result Comment: Antibody index is interpreted as follows: Non reactive SPECIMENS <=0.8 Weak reactive SPECIMENS 0.9 to 5.9 Reactive SPECIMENS >=6.0 Performed By: #### CBC, SYPHGX, HBSAG, HIV12C, RUBIGG #### [place] [phone] HEPATITIS B SURF. AG Collected: 02/25/2018 Status: F Source: [place] 11:40 AM [facility] REPOSITORY TYPE CODE TESTS RESULT OUT OF REFERENCE UNITS RANGE LAB HBSAG Negative Hepatitis B Negative Surf. Ag Performed By: #### CBC, SYPHGX, HBSAG, HIV12C, RUBIGG #### [place] [phone] HIV 12 COMBO (AG/AB) Collected: 02/25/2018 Status: F Source: [place] 11:40 [facility] REPOSITORY TYPE CODE TESTS RESULT OUT OF REFERENCE UNITS RANGE LAB HVAGAB Non Reactive HIV Non Reactive 12 Ag/Ab Result Comment: (NOTE) HIV Information: [place] Rev. Code 3701.243(E): This information has been disclosed to you from confidential records protected from disclosure by state law. You shall make no further disclosure of this information without the specific, written, and informed release of the individual to whom it pertains, or as otherwise permitted by state law. A general authorization for the release of medical or other information is not sufficient for the purpose of the release of HIV test results or diagnoses. Performed By: #### CBC, SYPHGX, HBSAG, HIV12C, RUBIGG #### [place] [phone] RUBELLA IGG ANTIBODY Collected: 02/25/2018 Status: F Source: [place] 11:40 [facility] REPOSITORY TYPE CODE TESTS RESULT OUT OF RANGE REFERENCE UNITS LAB RUBGQL Negative Abnormal Rubella IgG Positive Alert Ab, Qual Result Comment: Sample is considered positive for IgG antibodies to rubella virus. A positive result indicates previous exposure to Rubella virus or vaccination. LAB RUBQNT Index Value Rubella IgG Ab 2.50 Result Comment: Index values are interpreted as follows: Negative specimens <0.90 Equivocol specimens 0.90 to 0.99 Positive specimens >0.99 The magnitude of the measured result is not indicative of the amount of antibody present. Performed By: #### CBC, SYPHGX, HBSAG, HIV12C, RUBIGG #### [place] [address] TYPE AND SCR,PRENATL Collected: 02/25/2018 Status: F Source: [place] 11:40 AM [facility] REPOSITORY TYPE CODE TESTS RESULT OUT OF REFERENCE UNITS RANGE LAB %ABR A ABO/RH(D) POSITIVE LAB % Antibody NEG Screen Performed By: #### TSPN #### [place] [address] GC/CHLAMYDIA AMPLIF Collected: 02/25/2018 Status: F Source: [place] 11:00 AM [facility] REPOSITORY TYPE CODE TESTS RESULT OUT OF REFERENCE UNITS RANGE LAB GCCTSR GC/Chlam Amp Cervix Source LAB GCAMPL GC Negative Amplification for Neisseria gonorrhoeae by amplification. LAB CLAMPL Chlamydia Negative Amplif for Chlamydia trachomatis by amplification. Performed By: #### GCCT #### [place] [address] PROGRESS Observed: 02/25/2018 Status: COMPLETED Source: [place] 10:26 AM [facility] REPOSITORY HNO ID: [id number] Author: Carol Rogers Service: (none) Author Type: Physician Type: Progress Notes Filed: 02/25/2018 11:26 AM Note Text: INITIAL OB ASSESSMENT OB Provider: Carol Rogers MD HPI: Peyman Pickens is a 32 year old female here to establish Obstetrical Care. Patient's last menstrual period was 12/28/2017 (approximate). from OB Dating Form. Cycle length: 30 days Complaints: None was unplanned but accepted. Obstetric History T1 L3 SAB0 TAB0 Ectopic0 Multiple1 Live Births3 Prior : never History of 4th degree laceration: No Patient's Risk Screening for delivery: History of abnormal pap: No Prior treatment for cervical dysplasia: none. History of STDs: None Tobacco use: No Caffeine use: Yes Drug use: No Alcohol use: No Multivitamin with Folic acid: Yes Occupation: [employer] Mosque or heritage: No Would refuse blood transfusion if medically necessary: No No weight on file for this encounter. Patient BMI over 30? 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 - depression PAST SURGICAL HISTORY Procedure Laterality Date - HSG 2011 Current Outpatient Prescriptions on File Prior to Visit: Uiqmwmft-Iy-Ojo-Fe-FA ( VITAMIN) tab Take 1 tablet by mouth. fluconazole (DIFLUCAN) 150 mg tablet Take 1 tablet by mouth once daily. (Patient not taking: Reported on 02/17/2018 ) sertraline (ZOLOFT) 50 mg tablet Take 1 tablet by mouth once daily. No current facility-administered medications on file prior to visit. Review of Systems: GENERAL: Negative for: Fever or Chills HEENT: Negative for: Headache, Impaired Vision, Ringing in Ears, Nosebleeds NECK: Negative for: Swelling, Pain, Stiffness RESPIRATORY: Negative for: Cough, Shortness of breath, Wheezing GASTROINTESTINAL: Negative for: Heartburn, Constipation, Diarrhea, Blood in stool, Vomiting MUSCULOSKELETAL: Negative for: Muscle or joint pain, stiffness, Joint swelling NEUROLOGIC/PSYCHIATRIC: + depression doing well on zoloft SKIN: Negative for: Rash, Itching GENITOURINARY: Negative for: vaginal itching, vaginal discharge, hematuria or dysuria PHYSICAL EXAM: LMP 12/28/2017 GENERAL: pleasant female in no apparent distress DERMATOLOGY: Normal, without lesions, non-icteric and non-hirsute NECK: Supple, full range of motion, no adenopathy and thyroid normal BREAST: soft, non-tender, symmetric, no dominant mass, normal nipple-areolar complex, no lymphadenopathy and no nipple discharge ABDOMEN: soft, non-tender and no masses NEURO: alert and oriented x3,exam grossly non-focal PELVIS: External genitalia normal without lesions. Perineal body intact. No vaginal or cervical lesions. Cervix closed. Uterus 7 week size. No adnexal masses or tenderness. Clinical Pelvimetry: Pelvimetry clinically assessed as adequate Limited OB ultrasound exam: single intrauterine and positive cardiac activity ASSESSMENT: 32 year old at 7 wks gestational age PLAN: 1) Patient oriented to practice. Discussed nutrition, folic acid supplementation, dietary guidelines, exercise, smoking, alcohol, caffeine, and drug use. Discussed routine OB labs including STD/HIV. Discussed aneuploidy screening options including serum screening and nuchal translucency. 2) NT ordered Follow up in 4 weeks or sooner prn. Carol Brenner MD PROGRESS Observed: 02/17/2018 Status: COMPLETED Source: [place] 10:52 AM [facility] REPOSITORY O ID: [id number] Author: Humera Foote RN Service: (none) Author Type: (none) Type: Progress Notes Filed: 02/17/2018 11:04 AM Note Text: #: 1, Date: 07/31/13, Sex: Female, Weight: 5 lb 15 oz (2.693 kg), GA: 39w2d, Delivery: Vaginal, Spontaneous Delivery, Apgar1: 9, Apgar5: 9, Living: Living, Comments: Spontaneous labor, augmented with Pitocin, 2nd degree perineal laceration, 1st degree right labial tear, EBL 350cc #: 2A, Date: 08/24/16, Sex: Male, Weight: 5 lb 15 oz (2.693 kg), GA: 36w3d, Delivery: Vaginal, Spontaneous Delivery, Apgar1: 9, Apgar5: 9, Living: Living, Comments: twins mono/di, AROM,pitocin induction, extra toe, 2nd degree lacertation, EBL 500cc, transported to [facility] for blood glucose regulation #: 2B, Date: 08/24/16, Sex: Male, Weight: 5 lb 9 oz (2.523 kg), GA: 36w3d, Delivery: None, Apgar1: 8, Apgar5: 9, Living: Living, Comments: twins mono/di, pitocin induction, AROM, extra finger, 2nd degree laceration, EBL 500cc, transported to [facility] for blood glucose regulation #: 3, Date: None, Sex: None, Weight: None, GA: None, Delivery: None, Apgar1: None, Apgar5: None, Living: None, Comments: None CNNURSE Observed: 02/17/2018 Status: COMPLETED Source: [place] 9:00 AM [facility] HOSPITAL REPOSITORY Nurse Visit (WOOB) PEYMAN PICKENS ([id number]) 1985 F Date Time Provider Department 02/17/18 9:00 AM NURSE PNOB [facility] WOOB During your visit today, we recorded the following information about you: Last Period 12/28/17 Humera Foote RN 02/17/2018 10:44 AM Signed SEQUENTIAL SCREENINGS The [facility] offers sequential screenings for women who are interested in screenings for chromosomal abnormalities and certain defects during a . The sequential screen combines ultrasound and blood tests to determine the risk of chromosomal abnormalities, including Down's Syndrome (Trisomy 21) and Trisomy 18, as well as open neural tube defects including spina bifida. Ultrasound examination is performed between 11 weeks and 13 weeks gestational age. Blood tests are drawn after the ultrasound and again later in the between 15 and 21 weeks gestational age. Please let your physician know if you are interested in this testing. It will require an appointment with our component technician. This is not an ultrasound performed by a physician in our office during a routine visit. SIGNS AND SYMPTOMS OF LABOR 1. Contractions every 10 minutes or more often 2. Clear, pink, or brownish fluid (water) leaking from vagina 3. Feeling that baby is pushing down, pressure 4. Low, dull backache 5. Cramps that feel like a period 6. Cramps with or without diarrhea If you notice any of the above symptoms, contact our office at [phone] and ask to speak with a nurse. After hours, you can call doctors registry at [phone] OR call [facility] at [phone] and ask to have the doctor compensation consulting manager paged. If you consider this an emergency, dial 9-1-1 or go to your nearest emergency department. Cord-Blood Banking Up until recently, the umbilical cord--along with the blood that remained in it after a baby was born and the cord cut--was simply discarded by the hospital. Then, in the late , researchers discovered that cord blood possessed unusual properties that made it useful in the treatment of patients with some cancers and other illnesses. While the actual process of collecting cord blood is straightforward, many parents are not even aware that this option now exists, much less familiar with all the issues involved. The case for saving your baby's cord blood The blood running back and forth between your baby and the placenta is full of immature cells called stem cells. Unlike embryonic stem cells, which have the ability to develop into any type of body cell, cord-blood stem cells already are locked into a certain, vital function: making all the different components of the blood, such as platelets, white blood cells, and red blood cells-serving, in effect, like bone marrow. When transfused into a patient whose own blood cells have faulty genetic coding or have been destroyed by chemotherapy or other cancer treatments, the cord-blood cells can implant themselves in the bone marrow and generate legions of new, healthy cells. These days, cord-blood transplants most commonly are used in cancer patients when a donor can't be found for a bone-marrow transplant. The treatment is particularly effective in young patients-the [facility] Cord Blood [facility] reports a 70 percent success rate in children, but only 20 to 40 percent in adults. Researchers envision improving those odds and see many future applications as well, such as curing sickle cell disease and other blood-related genetic illnesses. So there is a possibility that your child, or someone else, may need these super-healthy and versatile cells one day. The drawbacks Aside from not knowing about this medical option, the main reason most people do not save their baby's stem cells is cost. In a private blood bank, the initial costs run from $275 to $1,500. Most also charge a yearly storage fee of $50 to $95. The advantage of using a private bank is that your sample is saved for only you to use. An alternative to private banking Public cord-blood estrada are an alternative. These cost no money to use, but your sample is not specifically saved for you. Another person with a more immediate need may use it. If the time should come that you need stem cells, yours may still be available, or you may use donations from other people without charge. You also can direct your sample to go to a relative with an immediate need if the blood type matches. Anyone else needing to use stem cells from a public bank who has not been a donor must pay for it, sometimes tens of thousands of dollars. Will my family benefit from saving stem cells? Right now, situations in which stem cells would be helpful are quite rare. As mentioned earlier, stem-cell transplants are most commonly used for rare genetic conditions and for some types of cancer, including leukemia and lymphoma. And even with these present uses, many questions remain. In cancer treatment, for example, some researchers are concerned about the wisdom of transplanting back into the child the same cells that already showed a propensity to become malignant. Doctors also aren't sure if the number of cells taken at the time of would be enough to treat a full-grown 16-year-old. It is also not completely clear how active the cells would be after years of being stored. The treatment is so new and rare, we just don't have the data yet to resolve these important issues. What do the experts say? The [employer] encourages philanthropic blood banking in public estrada, but only for families with a current or potential need. Blood-bank proponents encourage any kind of banking, pointing out that research is getting closer and closer to many diverse, live-saving applications. How do I decide? Each family must weigh the pros and cons for themselves. Some families say that any cost is worth their peace of mind. Others say that in the face of uncertainty about the effectiveness of the treatment, they will use their resources elsewhere. Some choose the middle ground of donating publicly, knowing that their sample might benefit another family, if not themselves. For more information, ask your doctor or nurse, and be sure to check out our article on the technical aspects of cord-blood banking. Technical Aspects of Cord-Blood Banking If you are interested in storing your baby's umbilical-cord blood because of its possible use in emerging medical treatments, you must make arrangements with a blood bank before your child is born. The collection procedure is quite simple: After delivery of the baby, the umbilical cord is clamped and cut in the usual way. The blood that remains in the umbilical-cord vessels is then collected in sterile containers. The blood may be removed from the cord with a large needle or allowed to flow freely, depending on the company's collection system. The containers may look like large test tubes or like the plastic bags used in a blood bank. It does not cause the mother or the baby any pain to collect the blood, and no blood is taken that the baby needs at the moment. The nurse, dock superintendent, or physician will then label the samples, check them over with you, and package them for a special pickup arranged with a commercial carrier. When the blood arrives at the blood-bank facility, it is processed and the parents are notified. It is then kept in an advanced storage system for years. How do I know that my sample is safe? Power outages and bankruptcies potentially could threaten any organization, but so far none have been reported. It is to be hoped that the scientists in these estrada would arrange for safe transfer to another facility if the need arose. YOU MUST MAKE ARRANGEMENTS AHEAD OF TIME! Public cord-blood estrada--DONATION: [employer] [phone] [facility]'s Placental Blood Program, [facility] Umbilical Cord Blood Bank, Private cord-blood estrada--SAVING FOR YOUR OWN USE: [employer], (I think this is the least expensive) [employer] [phone] [employer], [phone]) [employer] [place] Cord Blood [facility], [phone] [employer], [phone]-[phone] [place] [facility], Cord Blood Registry, ([phone]) [facility], An Internet search may provide you with additional listings. Humera Foote RN 02/17/2018 11:04 AM Signed #: 1, Date: 07/31/13, Sex: Female, Weight: 5 lb 15 oz (2.693 kg), GA: 39w2d, Delivery: Vaginal, Spontaneous Delivery, Apgar1: 9, Apgar5: 9, Living: Living, Comments: Spontaneous labor, augmented with Pitocin, 2nd degree perineal laceration, 1st degree right labial tear, EBL 350cc #: 2A, Date: 08/24/16, Sex: Male, Weight: 5 lb 15 oz (2.693 kg), GA: 36w3d, Delivery: Vaginal, Spontaneous Delivery, Apgar1: 9, Apgar5: 9, Living: Living, Comments: twins mono/di, AROM,pitocin induction, extra toe, 2nd degree lacertation, EBL 500cc, transported to [facility] for blood glucose regulation #: 2B, Date: 08/24/16, Sex: Male, Weight: 5 lb 9 oz (2.523 kg), GA: 36w3d, Delivery: None, Apgar1: 8, Apgar5: 9, Living: Living, Comments: twins mono/di, pitocin induction, AROM, extra finger, 2nd degree laceration, EBL 500cc, transported to [facility] for blood glucose regulation #: 3, Date: None, Sex: None, Weight: None, GA: None, Delivery: None, Apgar1: None, Apgar5: None, Living: None, Comments: None Referring Provider: SELF [200] Allergies As of Date: 02/17/2018 (No Known Allergies) Date Reviewed: 02/17/2018 Reviewed by: Humera Foote RN - Fully Assessed Reason for Visit: Care [86] Cmt: Pre-New OB Primary Visit Diagnosis:Encounter for supervision of normal in multigravida in first trimester [Z34.81] Other Visit Diagnoses:Obesity in [O99.210] History of depression [Z86.59] Patient requested diagnostic testing [Z01.89] Family history of carrier of genetic disease [Z84.81] History of infertility [Z87.42] Prescriptions as of 02/17/2018 Sig: VITAMIN,CALCIUM,MINE* Take 1 tablet by mouth. SERTRALINE 50 MG TABLET Take 1 tablet by mouth once d* FLUCONAZOLE 150 MG TABLET Take 1 tablet by mouth once d* Patient not taking: Reported on 02/17/2018 Problem List As Of Date 02/17/2018 Noted Resolved with care elsewhere [Z34.90] INVALID FOR*09/14/2013 More... Spotting in first trimester [O26.851] INVALID FOR*05/23/2013 More... Family history of defects [Z82.79] INVALID FOR*09/14/2013 More... Supervision of normal first [Z34.00] INVALID FOR*09/14/2013 More... Monochorionic diamniotic twin gestation in thir*INVALID FOR* More... Family history of defects [Z82.79] INVALID FOR* More... Placenta previa in second trimester [O44.02] INVALID FOR*07/16/2016 32 weeks gestation of [Z3A.32] INVALID FOR*07/24/2016 Positive GBS test [B95.1] INVALID FOR* Obesity in [O99.210] INVALID FOR* More... History of depression [Z86.59] INVALID FOR* More... Patient requested diagnostic testing [Z01.89] INVALID FOR* More... Family history of carrier of genetic disease [Z*INVALID FOR* More... History of infertility [Z87.42] INVALID FOR* More... Other instructions from your clinician: SEQUENTIAL SCREENINGS The [facility] offers sequential screenings for women who are interested in screenings for chromosomal abnormalities and certain defects during a . The sequential screen combines ultrasound and blood tests to determine the risk of chromosomal abnormalities, including Down's Syndrome (Trisomy 21) and Trisomy 18, as well as open neural tube defects including spina bifida. Ultrasound examination is performed between 11 weeks and 13 weeks gestational age. Blood tests are drawn after the ultrasound and again later in the between 15 and 21 weeks gestational age. Please let your physician know if you are interested in this testing. It will require an appointment with our component technician. This is not an ultrasound performed by a physician in our office during a routine visit. SIGNS AND SYMPTOMS OF LABOR 1. Contractions every 10 minutes or more often 2. Clear, pink, or brownish fluid (water) leaking from vagina 3. Feeling that baby is pushing down, pressure 4. Low, dull backache 5. Cramps that feel like a period 6. Cramps with or without diarrhea If you notice any of the above symptoms, contact our office at [phone] and ask to speak with a nurse. After hours, you can call [facility] at [phone] OR call [facility] at [phone] and ask to have the doctor compensation consulting manager paged. If you consider this an emergency, dial 9-1-1 or go to your nearest emergency department. Cord-Blood Banking Up until recently, the umbilical cord--along with the blood that remained in it after a baby was born and the cord cut--was simply discarded by the hospital. Then, in the late , researchers discovered that cord blood possessed unusual properties that made it useful in the treatment of patients with some cancers and other illnesses. While the actual process of collecting cord blood is straightforward, many parents are not even aware that this option now exists, much less familiar with all the issues involved. The case for saving your baby's cord blood The blood running back and forth between your baby and the placenta is full of immature cells called stem cells. Unlike embryonic stem cells, which have the ability to develop into any type of body cell, cord-blood stem cells already are locked into a certain, vital function: making all the different components of the blood, such as platelets, white blood cells, and red blood cells-serving, in effect, like bone marrow. When transfused into a patient whose own blood cells have faulty genetic coding or have been destroyed by chemotherapy or other cancer treatments, the cord-blood cells can implant themselves in the bone marrow and generate legions of new, healthy cells. These days, cord-blood transplants most commonly are used in cancer patients when a donor can't be found for a bone-marrow transplant. The treatment is particularly effective in young patients- the [facility] Cord Blood Bank reports a 70 percent success rate in children, but only 20 to 40 percent in adults. Researchers envision improving those odds and see many future applications as well, such as curing sickle cell disease and other blood-related genetic illnesses. So there is a possibility that your child, or someone else, may need these super-healthy and versatile cells one day. The drawbacks Aside from not knowing about this medical option, the main reason most people do not save their baby's stem cells is cost. In a private blood bank, the initial costs run from $275 to $1,500. Most also charge a yearly storage fee of $50 to $95. The advantage of using a private bank is that your sample is saved for only you to use. An alternative to private banking Public cord-blood estrada are an alternative. These cost no money to use, but your sample is not specifically saved for you. Another person with a more immediate need may use it. If the time should come that you need stem cells, yours may still be available, or you may use donations from other people without charge. You also can direct your sample to go to a relative with an immediate need if the blood type matches. Anyone else needing to use stem cells from a public bank who has not been a donor must pay for it, sometimes tens of thousands of dollars. Will my family benefit from saving stem cells? Right now, situations in which stem cells would be helpful are quite rare. As mentioned earlier, stem-cell transplants are most commonly used for rare genetic conditions and for some types of cancer, including leukemia and lymphoma. And even with these present uses, many questions remain. In cancer treatment, for example, some researchers are concerned about the wisdom of transplanting back into the child the same cells that already showed a propensity to become malignant. Doctors also aren't sure if the number of cells taken at the time of would be enough to treat a full-grown 16-year-old. It is also not completely clear how active the cells would be after years of being stored. The treatment is so new and rare, we just don't have the data yet to resolve these important issues. What do the experts say? The [employer] encourages philanthropic blood banking in public estrada, but only for families with a current or potential need. Blood-bank proponents encourage any kind of banking, pointing out that research is getting closer and closer to many diverse, live-saving applications. How do I decide? Each family must weigh the pros and cons for themselves. Some families say that any cost is worth their peace of mind. Others say that in the face of uncertainty about the effectiveness of the treatment, they will use their resources elsewhere. Some choose the middle ground of donating publicly, knowing that their sample might benefit another family, if not themselves. For more information, ask your doctor or nurse, and be sure to check out our article on the technical aspects of cord-blood banking. Technical Aspects of Cord-Blood Banking If you are interested in storing your baby's umbilical- cord blood because of its possible use in emerging medical treatments, you must make arrangements with a blood bank before your child is born. The collection procedure is quite simple: After delivery of the baby, the umbilical cord is clamped and cut in the usual way. The blood that remains in the umbilical-cord vessels is then collected in sterile containers. The blood may be removed from the cord with a large needle or allowed to flow freely, depending on the company's collection system. The containers may look like large test tubes or like the plastic bags used in a blood bank. It does not cause the mother or the baby any pain to collect the blood, and no blood is taken that the baby needs at the moment. The nurse, dock superintendent, or physician will then label the samples, check them over with you, and package them for a special pickup arranged with a commercial carrier. When the blood arrives at the blood- bank facility, it is processed and the parents are notified. It is then kept in an advanced storage system for years. How do I know that my sample is safe? Power outages and bankruptcies potentially could threaten any organization, but so far none have been reported. It is to be hoped that the scientists in these estrada would arrange for safe transfer to another facility if the need arose. YOU MUST MAKE ARRANGEMENTS AHEAD OF TIME! Public cord-blood estrada--DONATION: [employer] [phone] [facility]'s Placental Blood Program, [facility] Umbilical Cord Blood Bank, Private cord-blood estrada--SAVING FOR YOUR OWN USE: [employer], (I think this is the least expensive) [employer] [phone] [employer], [phone]) [employer] [place] Cord Blood [facility], [phone] [employer], [phone] [place] [facility], Cord Blood Registry, (028) [facility], An Internet search may provide you with additional listings. Disposition: Return in 8 days (on 02/25/2018) for New OB with Dr Rogers. Follow-up and Disposition History Recorded Letter Text Dear Peyman Pickens: How to activate your [facility] Toutiao Account 1. Visit the Toutiao Signup page at [email or web address] 2. Identify yourself using your one-time use activation code: [email or web address] 3. Follow the on-screen prompts to choose your own secure username and password The following information will be necessary to access your account for the first time: Information needed for sign-up: Your custom activation code used one-time only for the initial account set-up. Your date of The last 4 digits of your social security number What to do next: Fill in the requested information on the Identify Yourself Form at [email or web address] , click Next. Create your login and password, choose a Toutiao ID and password that will be easy for you to use, but impossible for anyone else to guess. Pick a security question that will assist you in the event you forget your password the next time you log-on. If you have difficulty activating your account, please call our Toutiao helpline at [phone] or toll free at . We hope you enjoy using Tout[employer]! Kindest Regards, [facility] Toutiao Team Letter Text [facility] [address] [place] [id number] 02/17/2018 RE: Peyman Pickens : 1985 To Whom It May Concern: This is to verify that the above captioned patient is with a alejandra interuterine pregnancyand her Estimated Date of Delivery: 10/04/18. Sincerely, Carol Rogers MD Encounter Status:Closed by HUMERA FOOTE RN on 02/17/18 [place] Observed: 11/30/2017 Status: COMPLETED Source: [place] 12:00 AM [facility] REPOSITORY Patient Outreach (FAMPST) PEYMAN PICKENS ([id number]) 1985 F Date Time Provider Department 11/30/17 WOODROW CUETO) FAMPST During your visit today, we recorded the following information about you: Allergies As of Date: 11/30/2017 (No Known Allergies) Date Reviewed: 09/07/2017 Reviewed by: Scout Davis LPN - Fully Assessed Visit Diagnosis:Medication management [Z79.899] Order(s):HGB A1C [JVGLS9N] Order #: [id number] FUTURE Prescriptions as of 11/30/2017 Sig: X FLUCONAZOLE 150 MG TABLET Take 1 tablet by mouth once d* Patient not taking: Reported on 02/17/2018 SERTRALINE 50 MG TABLET Take 1 tablet by mouth once d* Problem List As Of Date 11/30/2017 Noted Resolved with care elsewhere [Z34.90] INVALID FOR*09/14/2013 More... Spotting in first trimester [O26.851] INVALID FOR*05/23/2013 More... Family history of defects [Z82.79] INVALID FOR*09/14/2013 More... Supervision of normal first [Z34.00] INVALID FOR*09/14/2013 More... Monochorionic diamniotic twin gestation in thir*INVALID FOR* More... Family history of defects [Z82.79] INVALID FOR* More... Placenta previa in second trimester [O44.02] INVALID FOR*07/16/2016 32 weeks gestation of [Z3A.32] INVALID FOR*07/24/2016 Positive GBS test [B95.1] INVALID FOR* Encounter Status:Closed by LUANN GRANADOS on 07/22/18 [facility] Observed: 11/16/2017 Status: COMPLETED Source: [place] 12:[address] [facility] REPOSITORY Letter Text Peyman Pickens [address] [facility] [address] [facility] [address] 11/16/2017 [facility] #: [id number] Dear , Due to a change in the provider's schedule it has been necessary to reschedule your Appointment. Your original appointment was scheduled for 12/06/2017 at 3:40 PM with Woodrow Cueto CNP. Your new appointment is now scheduled on 12/13/2016 at 3:40 PM with Woodrow Cueto CNP. If this new appointment is not convenient for you, please contact our office at [phone]. Thank you for choosing the [facility] as your Healthcare Provider . Sincerely, Family Medicine Appointment Office ALLERGIES ALLERGIES DATE TYPE / CODE NAME / CODE REACTION SEVERITY SOURCE 08/24/2016 Drug No Known Unknown [facility] Allergy/416 Allergies/X92579 Hospital 565001(SNOM 0388(RXNORM) Repository ED CT) Drug NO KNOWN [facility] Class/02121 ALLERGIES [facility] [place] 1003(SNOMED Repository CT) ENCOUNTERS ENCOUNTERS ADMIT/DISCHARGE ACCOUNT ADMITTING ENCOUNTER LOCATION SOURCE NUMBER CLASS 10/27/2018/10/27/19 [id number] Ambulatory [place] [facility] [place] Repository 10/07/2018/10/10/20 [id number] Ambulatory [place] [facility] [place] Repository 09/28/2018/09/30/20 [id number] Kost[place], Inpatient [place] 18 Shruthi Encounter [facility] ing:WPRoom: Repository [id number]: 1 09/28/2018/09/29/20 [id number] Ambulatory [place] [facility] [place] Repository 09/26/2018/09/28/20 [id number] [facility]ulatory [place] [facility] [place] Repository 09/19/2018/09/20/20 [id number] [facility]ulatory [place] [facility] [place] Repository 09/09/2018/09/12/20 [id number] [facility]ulatory [place] [facility] [place] Repository 09/06/2018/09/09/20 [id number] [facility]ulatory [place] [facility] [place] Repository 08/23/2018/08/24/20 [id number] Ambulatory [place] [facility] [place] Repository 08/15/2018/08/16/20 [id number] [facility] [place] [facility] 08/11/2018/08/12/20 [id number] [facility] [place] [facility] 07/28/2018/07/28/20 [id number] [facility] [place] [facility] 07/28/2018/08/16/20 [id number] [facility] [place] [facility] 07/28/2018/07/29/20 [id number] [facility] [place] [facility] 07/01/2018/07/04/20 [id number] [facility] [place] [facility] 05/26/2018/05/27/20 [id number] [facility] [place] [facility] 05/26/2018/05/27/20 [id number] [facility] [place] [facility] [place] [facility] 04/28/2018/04/28/20 [id number] [facility] [place] [facility] [place] [facility] 04/28/2018/04/29/20 [id number] [facility] [place] [facility] [place] [facility] 03/29/2018/03/29/20 [id number] [facility] [place] [facility] [place] [facility] 03/29/2018/03/31/20 [id number] [facility] [place] [facility] [place] [facility] 03/29/2018/03/31/20 [id number] [facility] [place] [facility] [place] [facility] 03/04/2018/03/08/20 [id number] [facility] [place] [facility] [place] [facility] 02/25/2018/03/09/20 [id number] [facility] [place] [facility] [place] [facility] 02/25/2018/03/01/20 [id number] [facility] [place] [facility] [place] [facility] 02/17/2018/02/22/20 [id number] [facility] [place] [facility] [place] [facility] PAYERS PAYERS ENCOUNTER GUARANTOR PAYER SUBSCRIBER SOURCE 09/28/2018 PEYMAN Correa Primary PEYMAN [id number] SR Insurance:[facility]: [address] [id number] [id number] [id number] (HP) Date:[id number] [address] [address]BI: 09/28/2018 Secondary NOT GIVENJEIMY Dasilva Insurance:SELF PAY [facility] Number: Effective Repository Date:2018-09-28
== END 2018-09-30 18:00 | disposition home or self-care (01) | DRG 560 ==
PROVIDERS: Admitting Provider Obstetrics & Gynecology; Family Provider Nurse Practitioner Adult Health; PCP Nurse Practitioner Adult Health; Referring Provider Obstetrics & Gynecology; Visit Provider Obstetrics & Gynecology
DX: O70.0 First degree perineal laceration during delivery (principal); O99.02 Anemia complicating childbirth; D64.9 Anemia, unspecified; O99.344 Other mental disorders complicating childbirth; F32.9 Major depressive disorder, single episode, unspecified; F41.9 Anxiety disorder, unspecified; O99.824 Streptococcus B carrier state complicating childbirth; Z87.891 Personal history of nicotine dependence; Z3A.37 37 weeks gestation of pregnancy; Z37.0 Single live birth
CPT/HCPCS: 59025; 59050; 85027; 86850; 86900; 99218; J7120; G0378